=== PATIENT | female | born 1990 | race Caucasian/White ===

== ENCOUNTER 2018-12-17 18:45 | Emergency (ER) | payer MEDICAID, OTHER ==
[~2018-12-17] VITALS: Ht 160 cm; Wt 51.7 kg
--- NOTE | 2018-12-17 19:30 | ED GU-Female ---
General Chief Complaint: SERVICES TECH Stated Complaint: SWOLLEN/PAINFUL VAGINA Nursing Triage Note: Patient states that she got home from work and noticed a spot with a white head on the right side of the upper inner labia. Patient got in the shower and states she felt a "popping sensation", went to bed and woke up with severe swelling. Patient went to Dr Billingsley on Wednesday. He cultured it and prescribed an antibiotic. Patient states that the swelling around her anal area has improved but her labias still have severe swelling and pain. Patient is rating her pain at a 10. Patient denies having any drainage from the area where she found the sore. She doesn't believe that Dr. Billingsley was able to get any drainage either. Patient states that the whole area is hard to the touch. Nursing Sepsis Screen: No Definite Risk Source: patient History of Present Illness Date Seen by Provider: Dec 17, 2018 Time Seen by Provider: 19:30 Initial Comments 28-year-old female presenting with continued pain and swelling to her right labia. She was seen by Dr. Villa on Wednesday for the same thing. She has been taking antibiotics as well as using ice alternating with sitz baths. she continues to have increased swelling and pain. She has not had any drainage from the area. She does feel like the swelling has gone down some since she was seen on Wednesday. She has had no fever or chills. She has been using ibuprofen for the pain with minimal improvement. She came in today because the pain was unbearable tonight. She has increased pain when she is walking as her legs and labia are rubbing on the area. There is increased pressure as well when she has to wipe after going to the bathroom. Allergies and Home Medications Allergies Coded Allergies: amoxicillin (Verified Allergy, Severe, Hives, 12/17/18) Uncoded Allergies: SULFA (Allergy, Severe, Hives, 12/17/18) Home Medications Tramadol HCl 50 Mg Tablet, 50 MG PO Q6H PRN for PAIN Prescribed by: ALEX ARRIETA on 12/17/182055 Patient Home Medication List Home Medication List Reviewed: Yes Review of Systems Review of Systems Constitutional: No chills, No fever EENTM: no symptoms reported Respiratory: no symptoms reported Cardiovascular: no symptoms reported Gastrointestinal: nausea (after taking medication.) Genitourinary: see HPI Musculoskeletal: no symptoms reported Skin: see HPI Past Nyojjaf-Xdzqho-Ldtbel Hx Past Med/Social Hx: Reviewed Nursing Past Med/Soc Hx Patient Social History Alcohol Use: Denies Use Recreational Drug Use: Yes Drug of Choice: Marijuana Smoking Status: Current Everyday Smoker Type Used: Electronic/Vapor 2nd Hand Smoke Exposure: Yes Recent Foreign Travel: No Contact w/Someone Who Travel: No Recent Infectious Disease Expo: No Recent Hopitalizations: No Physical Abuse: No Sexual Abuse: No Mistreated: No Fear: No Seasonal Allergies Seasonal Allergies: No Past Medical History Surgeries: Yes (EGD, Tubes in Ears, Colonoscopy, Hernia Repair) Respiratory: No Cardiac: No Neurological: No Genitourinary: No Gastrointestinal: Yes (Gastritis) Musculoskeletal: No Endocrine: No HEENT: No Cancer: No Psychosocial: No Integumentary: No Physical Exam Vital Signs Vital Signs - First Documented 12/17/18 18:50 Temp 98.3 Pulse 62 Resp 18 B/P (MAP) 152/103 (119) Pulse Ox 99 O2 Delivery Room Air Capillary Refill : Less Than 3 Seconds Height, Weight, BMI Height: 5'3.00" Weight: 114lbs. 0oz. 51.977826xm; BMI Method:Stated General Appearance: WD/WN, moderate distress, thin HEENT: PERRL/EOMI, pharynx normal Genital/Rectal: other (swelling to the right labia with the pustule chest lateral to her porter of the clitoris on outer labia majora. no fluctuance or drainage. indurated and tender to palpation) Neurologic/Psychiatric: alert, oriented x 3 Skin: normal color, warm/dry Progress/Results/Core Measures Suspected Sepsis Recent Fever Within 48 Hours: No Infection Criteria Present: Suspected New Infection New/Unexplained Altered Menta: No Sepsis Screen: No Definite Risk SIRS Temperature:98.3 Pulse: 62 Respiratory Rate: 18 Blood Pressure 152 /103 Mean: 119 Results/Orders My Orders Orders - ALEX ARRIETA MD Ketorolac Injection (Toradol Injection) (12/17/18 20:00) Rx-Tramadol Hcl (Rx-Ultram) (12/17/18 21:00) Medications Given in ED Current Medications Medications Dose Ordered Sig/Deysi Route Start Time Stop Time Status Last Admin Dose Admin Ketorolac Tromethamine 60 mg ONCE ONCE IM 12/17/18 20:00 7/6/19 20:01 DC 12/17/18 19:52 60 MG Vital Signs/I&O 12/17/18 12/17/18 18:50 21:00 Temp 98.3 98.7 Pulse 62 68 Resp 18 18 B/P (MAP) 152/103 (119) 134/92 (106) Pulse Ox 99 99 O2 Delivery Room Air Room Air Capillary Refill : Less Than 3 Seconds Blood Pressure Mean: 119 Progress Note : Progress Note Discussed with Dr. Billingsley about the area in question. As I had not seen any definite area to drain and had not felt a definite area of fluctuance I did not feel comfortable trying to randomly to an incision and drainage or needle aspiration. Will try to have her continue the antibiotics and treatment. Check in clinic on wednesday as scheduled Toradol for pain here helped some. Tramadol at home for pain as Hydrocodone makes her vomit and sick Departure Impression Primary Impression: Abscess of labia majora Disposition: HOME, SELF-CARE Condition: Stable Departure-Patient Inst. Decision time for Depature: 20:54 Referrals: CATY BILLINGSLEY DO (PCP/Family) Primary Care Physician Patient Instructions: Boil (DC) Add. Discharge Instructions: Continue on the antibiotics with soaks and alternate with cold packs. Try to rest when you can. Keep your follow up with Dr. Billingsley on Wednesday as scheduled. All discharge instructions reviewed with patient and/or family. Voiced understanding. Scripts Tramadol HCl (Tramadol HCl) 50 Mg Tablet 50 MG PO Q6H PRN for PAIN for 5 Days, #20 TAB 0 Refills Prov: ALEX ARRIETA MD 12/17/18 Work/School Note: Work Release Form Date Seen in the Emergency Department: Dec 17, 2018 Return to Work: Dec 21, 2018 Restrictions: No Restrictions ALEX ARRIETA MD Dec 17, 2018 19:30
[2018-12-17] MEDS ORDERED: KETOROLAC 60 MG/2 ML VIAL IM ONE (20:00)
--- OUTSIDE RECORDS SUMMARY | 2018-12-17 20:08 | XMS REPORT | Continuity of Care Document ---
Author Organization Unknown Address Unknown Allergies There is no data. Medications There is no data. Problems There is no data. Procedures There is no data. Results There is no data. Encounters ACCT No. Visit Date/Time Discharge Status Pt. Type Provider Facility Loc./Unit Complaint [id number] 12/13/2018 15:15:00 12/13/2018 23:59:59 CLS Outpatient CODY CASTILLO [facility]
--- OUTSIDE RECORDS SUMMARY | 2018-12-17 20:08 | XMS REPORT ---
Author Author DEBBIE MCKINNEY Organization [facility] Address [address] [place] [address] Care Team Providers Care Adult Daycare Coordinator Name Role Phone DEBBIE MCKINNEY Unavailable PROBLEMS Type Condition ICD9-CM Code TVZ83-TT Code Onset Dates Condition Status SNOMED Code Problem Encounter for dental examination Z01.20 Active [id number] Assessment Encounter for dental examination Z01.20 Jan, Active [id number] ALLERGIES Substance Reaction Event Type Date Status Sulfacet-R hives Drug Allergy Jan, Active Amoxicillin anaphylaxis Drug Allergy Jan, Active latex or plastic tape/bandages hives Non Drug Allergy Jan, Active SOCIAL HISTORY No smoking Hx information available PLAN OF CARE VITAL SIGNS Blood pressure systolic 112 mmHg 2016-02-11 Blood pressure diastolic 69 mmHg 2016-02-11 MEDICATIONS Medication Instructions Dosage Frequency Start Date End Date Duration Status Multi Complete - Active RESULTS No Results PROCEDURES Procedure Date Ordered Related Diagnosis Body Site COMP ORAL EVALUATION - NEW/EST PT Feb 11, 2016 INTRAORL-PERIAPICAL 1 FILM [id number] Feb 11, 2016 TOPICAL FLUORIDE VARNISH Feb 11, 2016 PROPHYLAXIS - ADULT Feb 11, 2016 INTRAORL-PERIAPICAL EA ADD FILM Feb 11, 2016 INTRAORL-PERIAPICAL EA ADD FILM Feb 11, 2016 PANORAMIC FILM SEE ALSO CODE [id number] Feb 11, 2016 BITEWINGS - FOUR FILMS Feb 11, 2016 IMMUNIZATIONS No Known Immunizations
[2018-12-17] MEDS ORDERED: TRAM50TA2 PO (20:56)
[2018-12-17 21:00] VITALS: BP 134/92
[2018-12-17] MEDS ORDERED: RX-TRAMADOL 50 MG (ULTRAM) TAB PPK#4 PO PRN (21:00)
== END 2018-12-17 21:00 | disposition home or self-care (01) ==
LOC: ER FS 18:48
DX: N76.4 Abscess of vulva (principal); F12.10 Cannabis abuse, uncomplicated; F17.290 Nicotine dependence, other tobacco product, uncomplicated; Z88.1 Allergy status to other antibiotic agents; Z88.2 Allergy status to sulfonamides; Z98.890 Other specified postprocedural states
CPT/HCPCS: 96372; 99284

== ENCOUNTER 2018-12-19 13:16 | Emergency (ER) | payer MEDICAID ==
[~2018-12-19] VITALS: Ht 160 cm; Wt 52.2 kg
[~2018-12-19 13:16] MED LIST: TRAM50TA2 PO
--- OUTSIDE RECORDS SUMMARY | 2018-12-19 13:21 | XMS REPORT | Continuity of Care Document ---
Author Organization Unknown Address Unknown Allergies There is no data. Medications There is no data. Problems There is no data. Procedures There is no data. Results There is no data. Encounters ACCT No. Visit Date/Time Discharge Status Pt. Type Provider Facility Loc./Unit Complaint [id number] 12/13/2018 15:15:00 12/13/2018 23:59:59 CLS Outpatient CODY CASTILLO [facility]
--- NOTE | 2018-12-19 13:30 | NUR ---
Spoke to [facility] clinic staff to see if Dr Hewitt is available this afternoon and if she treats bartholin cysts or labial abscesses. Informed that Dr Hewitt is doing deliveries this afternoon and is unavailable.
[2018-12-19] MEDS ORDERED: KETOROLAC 15 MG/ML VIAL ONE (13:35)
--- NOTE | 2018-12-19 13:39 | ED GU-Female ---
General Stated Complaint: ABSCESS Source: patient, RN notes reviewed, old records Exam Limitations: no limitations History of Present Illness Date Seen by Provider: Dec 19, 2018 Time Seen by Provider: 13:27 Initial Comments Patient represents here c/ c/o worsening right labia pain and swelling. Has an appointment c/ Dr. Billingsley tomorrow, but the pain has gotten to the point she can't take it any longer although she hasn't taken anything for her pain. States she took a Tramadol yesterday and it spaced her out. Timing/Duration: constant, getting worse Severity/Quality: severe, throbbing Location: other (right labia) Radiation: none Activities at Onset: none Modifying Factors: Worsens With Palpation Associated Symptoms: denies symptoms (x/ as noted.), mass (right labia), swelling (right labia) Allergies and Home Medications Allergies Coded Allergies: amoxicillin (Verified Allergy, Severe, Hives, 12/17/18) Uncoded Allergies: SULFA (Allergy, Severe, Hives, 12/17/18) Home Medications Tramadol HCl 50 Mg Tablet, 50 MG PO Q6H PRN for PAIN Prescribed by: ALEX ARRIETA on 12/17/182055 Patient Home Medication List Home Medication List Reviewed: Yes Review of Systems Review of Systems Constitutional: see HPI Genitourinary: see HPI, pain (right labia) : No All Other Systemes Reviewed Negative Unless Noted: Yes (Negative excepted noted.) Past Euxgvdt-Tclljz-Jnlbqt Hx Patient Social History Drug of Choice: Marijuana Type Used: Electronic/Vapor 2nd Hand Smoke Exposure: Yes Recent Hopitalizations: No Seasonal Allergies Seasonal Allergies: No Past Medical History Surgeries: Yes (EGD, Tubes in Ears, Colonoscopy, Hernia Repair) Respiratory: No Cardiac: No Neurological: No Genitourinary: No Gastrointestinal: Yes (Gastritis) Musculoskeletal: No Endocrine: No HEENT: No Cancer: No Psychosocial: No Integumentary: No Physical Exam Vital Signs Capillary Refill : Height, Weight, BMI Height: 5'3.00" Weight: 114lbs. 0oz. 51.040351zu; BMI Method:Stated General Appearance: WD/WN, moderate distress Respiratory: no respiratory distress Pelvic: other (swollen, tender right labia) Neurologic/Psychiatric: no motor/sensory deficits, alert, oriented x 3 Skin: warm/dry Progress/Results/Core Measures Suspected Sepsis SIRS Temperature: Pulse: Respiratory Rate: Blood Pressure / Mean: Results/Orders My Orders Orders - SNUNI BAÑUELOS DO Ketorolac Injection (Toradol Injection) (12/19/18 13:45) Ketorolac Injection (Toradol Injection) (12/19/18 13:35) Medications Given in ED Current Medications Medications Dose Ordered Sig/Deysi Route Start Time Stop Time Status Last Admin Dose Admin Ketorolac Tromethamine 15 mg ONCE ONCE IM 12/19/18 13:45 12/19/18 13:46 12/19/18 13:41 15 MG Vital Signs/I&O Capillary Refill : Progress Note : Progress Note Discussed c/ Dr. Billingsley. He requests the patient come directly down to the [facility] clinic for evaluation and treatment. Departure Impression Primary Impression: Abscess of labia majora Disposition: 01 HOME, SELF-CARE Condition: Stable Departure-Patient Inst. Decision time for Depature: 13:38 Referrals: CATY BILLINGSLEY DO SELFCATHERINE MD (PCP/Family) Primary Care Physician Add. Discharge Instructions: PROCEED DIRECTLY TO THE THE [facility] IN [place] TO SEE DR. BILLINGSLEY. SUNNI BAÑUELOS DO Dec 19, 2018 13:39
[2018-12-19] MEDS ORDERED: KETOROLAC 60 MG/2 ML VIAL IM ONE (13:45)
[2018-12-19 13:48] VITALS: BP 128/83
== END 2018-12-19 13:50 | disposition home or self-care (01) ==
LOC: EDUNIT# 13:16 → ER FS 13:18
DX: N76.4 Abscess of vulva (principal); Z88.1 Allergy status to other antibiotic agents; Z88.2 Allergy status to sulfonamides; Z77.22 Contact with and (suspected) exposure to environmental tobacco smoke (acute) (chronic); Z98.890 Other specified postprocedural states
CPT/HCPCS: 96372; 99284

== ENCOUNTER → 2019-07-21 | Outpatient (CLI) | payer MEDICAID ==
[~2019-07-21] MED LIST changes: -TRAM50TA2 PO; +TRM50T PO
--- NOTE | 2019-07-21 17:43 | Diagnostic Imaging Report ---
INDICATION: Left chest pain. PA and lateral views of the chest are obtained. COMPARISON: No previous study is available for comparison at this time. FINDINGS: Heart size and pulmonary vasculature are within normal limits, and the lungs are clear, bilaterally. IMPRESSION: Unremarkable chest. Dictated by: Dictated on workstation # [id number]
== END ==
LOC: RAD FS 16:46
PROVIDERS: ATTEND Nurse Practitioner Family
DX: R07.89 Other chest pain (principal)
CPT/HCPCS: 71046

== ENCOUNTER 2023-03-16 14:18 | Emergency (ER) | payer MEDICAID ==
[~2023-03-16] VITALS: Ht 162 cm; Wt 48.0 kg
[~2023-03-16 14:18] MED LIST changes: +DOXY25TA56 PO; +FAMO40TA72 PO; +ONDA4TAB11 SL; +PROM12.566 RC
[2023-03-16] MEDS ORDERED: LACTATED RINGERS 1,000 ML 1,000 ML IV STA (14:25)
[2023-03-16] MEDS ORDERED: diphenhydrAMINE INJ 50 MG/ML VIAL IV STA (14:25)
[2023-03-16] MEDS ORDERED: PROMETHAZINE INJ 25 MG/ML VIAL IVP STA (14:25)
[2023-03-16 14:36] LABS: BASOPHILS % (AUTO) 0 % (0-10); EOSINOPHILS % (AUTO) 0 % (0-10); HEMATOCRIT 42 % (35-52); HEMOGLOBIN 14.9 g/dL (11.5-16.0); LYMPHOCYTES # (AUTO) 1.8 10^3/uL (1.0-4.0); LYMPHOCYTES % (AUTO) 20 % (12-44); MEAN CORPUSCULAR HEMOGLOBIN 32 pg (25-34); MEAN CORPUSCULAR HGB CONC 35 g/dL (32-36); MEAN CORPUSCULAR VOLUME 90 fL (80-99); MONOCYTES # (AUTO) 0.9 10^3/uL (0.0-1.0); MONOCYTES % (AUTO) 10 % (0-12); NEUTROPHILS # (AUTO) 6.4 10^3/uL (1.8-7.8); NEUTROPHILS % (AUTO) 69 % (42-75); PLATELET COUNT 187 10^3/uL (130-400); WHITE BLOOD COUNT 9.3 10^3/uL (4.3-11.0)
--- NOTE | 2023-03-16 14:44 | ED GI ---
General Stated Complaint: VOMITING History of Present Illness Date Seen by Provider: Mar 16, 2023 Time Seen by Provider: 14:34 Initial Comments 33-year-old female is a G G2, P1 at approximately 8 weeks with estimated due date of 11/01/2023 presents with vomiting. Patient has had significant issues with vomiting through her . She has been seen here on March 10 and again on March 14. She is also was seen yesterday by her primary care provider/OB where she has some IV fluids and Phenergan. She presents because she reports she is continue to have a hard time keeping anything down. Patient has doxylamine and Zofran at home. Allergies and Home Medications Allergies Coded Allergies: amoxicillin (Verified Allergy, Severe, Hives, 12/17/18) Uncoded Allergies: SULFA (Allergy, Severe, Hives, 12/17/18) Patient Home Medication List Home Medication List Reviewed: Yes Doxylamine Succinate (Unisom) 25 Mg Tablet, 25 MG PO HS Prescribed by: KENYETTA ALANIS on 03/10/2315 Famotidine (Pepcid) 40 Mg Tablet, 40 MG PO DAILY Prescribed by: KENYETTA ALANIS on 03/10/23 0616 Ondansetron (Ondansetron Odt) 4 Mg Tab.rapdis, 4 MG SL Q6H PRN for NAUSEA/VOMITING-2ND LINE Prescribed by: KENYETTA ALANIS on 03/10/23 0615 Promethazine HCl (Promethazine Suppository) 12.5 Mg Supp.rect, 12.5 MG RC Q6H PRN for NAUSEA/VOMITING Prescribed by: ALEX ARRIETA on 03/14/235 Tramadol HCl (Tramadol HCl) 50 Mg Tablet, 50 MG PO Q6H PRN for PAIN Prescribed by: ALEX ARRIETA on 12/17/182055 Review of Systems Review of Systems Constitutional: see HPI EENTM: No Symptoms Reported Respiratory: No Symptoms Reported Cardiovascular: No Symptoms Reported Gastrointestinal: No Symptoms Reported Genitourinary: See HPI Skin: no symptoms reported Psychiatric/Neurological: No Symptoms Reported Endocrine: No Symptoms Reported Past Pwznfpe-Pbbncq-Dtxxil Hx Seasonal Allergies Seasonal Allergies: No Past Medical History Surgeries: Yes (EGD, Tubes in Ears, Colonoscopy, Hernia Repair) Respiratory: No Cardiac: No Neurological: No Genitourinary: No Gastrointestinal: Yes (Gastritis) Gastroesophageal Reflux Musculoskeletal: No Endocrine: No HEENT: No Cancer: No Psychosocial: No Integumentary: No Physical Exam Vital Signs Vital Signs - First Documented 03/16/23 14:46 Temp 36.7 Pulse 95 Resp 16 B/P (MAP) 141/85 (103) Pulse Ox 97 O2 Delivery Room Air Capillary Refill : Height/Weight/BMI Height: 5'3.00" Weight: 115lbs. 0oz. 52.846406mq; 18.00 BMI Method:Stated General Appearance: no apparent distress, thin Neck: full range of motion, supple Respiratory: lungs clear, normal breath sounds Cardiovascular: normal peripheral pulses, regular rate, rhythm Gastrointestinal: non tender, soft, other (fht 160's) Extremities: normal range of motion Neurologic/Psychiatric: alert, normal mood/affect, oriented x 3 Skin: normal color, warm/dry Progress/Results/Core Measures Results/Orders Lab Results Laboratory Tests Test 03/16/23 14:30 Range/Units White Blood Count 9.3 4.3-11.0 10^3/uL Red Blood Count 4.71 3.80-5.11 10^6/uL Hemoglobin 14.9 11.5-16.0 g/dL Hematocrit 42 35-52 % Mean Corpuscular Volume 90 80-99 fL Mean Corpuscular Hemoglobin 32 25-34 pg Mean Corpuscular Hemoglobin Concent 35 32-36 g/dL Red Cell Distribution Width 11.8 10.0-14.5 % Platelet Count 187 130-400 10^3/uL Mean Platelet Volume 11.0 9.0-12.2 fL Immature Granulocyte % (Auto) 0 % Neutrophils (%) (Auto) 69 42-75 % Lymphocytes (%) (Auto) 20 12-44 % Monocytes (%) (Auto) 10 0-12 % Eosinophils (%) (Auto) 0 0-10 % Basophils (%) (Auto) 0 0-10 % Neutrophils # (Auto) 6.4 1.8-7.8 10^3/uL Lymphocytes # (Auto) 1.8 1.0-4.0 10^3/uL Monocytes # (Auto) 0.9 0.0-1.0 10^3/uL Eosinophils # (Auto) 0.0 0.0-0.3 10^3/uL Basophils # (Auto) 0.0 0.0-0.1 10^3/uL Immature Granulocyte # (Auto) 0.0 0.0-0.1 10^3/uL Percent Immature Platelet Fraction 6.7 0.0-7.6 % Sodium Level 133 L 135-145 MMOL/L Potassium Level 3.6 3.6-5.0 MMOL/L Chloride Level 99 98-107 MMOL/L Carbon Dioxide Level 23 21-32 MMOL/L Anion Gap 11 5-14 MMOL/L Blood Urea Nitrogen 8 7-18 MG/DL Creatinine 0.43 L 0.60-1.30 MG/DL Estimat Glomerular Filtration Rate 132 BUN/Creatinine Ratio 19 Glucose Level 114 H 70-105 MG/DL Calcium Level 10.3 H 8.5-10.1 MG/DL Corrected Calcium 10.1 8.5-10.1 MG/DL Total Bilirubin 0.9 0.1-1.0 MG/DL Aspartate Amino Transf (AST/SGOT) 18 5-34 U/L Alanine Aminotransferase (ALT/SGPT) 20 0-55 U/L Alkaline Phosphatase 70 40-136 U/L Total Protein 6.7 6.4-8.2 GM/DL Albumin 4.2 3.2-4.5 GM/DL My Orders Orders - SALAZAR,DI L DO Cbc And Automated Diff (03/16/23 14:25) Comprehensive Metabolic Panel (03/16/23 14:25) Promethazine Injection (Promethazine I (03/16/23 14:25) Lactated Ringers 1,000 Ml (Lactated Ring (03/16/23 14:25) Diphenhydramine Injection (Diphenhydram (03/16/23 14:25) Vital Signs/I&O 03/16/23 14:46 Temp 36.7 Pulse 95 Resp 16 B/P (MAP) 141/85 (103) Pulse Ox 97 O2 Delivery Room Air Progress Progress Note : Progress Note Patient's diagnostic studies were ordered reviewed and interpreted by me with no significant acute findings. Patient is feeling better following IV fluids and IV nausea medications. I did review patient's chart. 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 Patient has a history of marijuana use I suggest that she may try some capsaicin cream on her abdomen to help dampen the nausea. 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 Patient stable and discharged home Departure Impression Primary Impression: Hyperemesis gravidarum Disposition: 01 HOME, SELF-CARE Condition: Stable Departure-Patient Inst. Referrals: SELF,CATHERINE NGUYEN (PCP/Family) Primary Care Physician Patient Instructions: Morning Sickness (DC) Add. Discharge Instructions: You may try a thin layer of capsaicin cream on your abdomen to help with the nausea. Follow-up with your primary care provider return to the ER as needed for IV fluids and medications to help with your nausea. Follow-up with Dr. Wilkinson as needed. DI SALAZAR DO Mar 16, 2023 14:44
[2023-03-16 14:46] VITALS: BP 141/85
[2023-03-16 14:55] LABS: POTASSIUM 3.6 MMOL/L (3.6-5.0)
[2023-03-16 14:56] LABS: ALBUMIN 4.2 GM/DL (3.2-4.5); BILIRUBIN,TOTAL 0.9 MG/DL (0.1-1.0); CALCIUM 10.3 MG/DL (8.5-10.1); CREATININE SERUM 0.43 MG/DL (0.60-1.30); TOTAL PROTEIN 6.7 GM/DL (6.4-8.2)
== END 2023-03-16 15:30 | disposition home or self-care (01) ==
LOC: EDUNIT# 14:18 → ER FS 14:20
DX: O21.0 Mild hyperemesis gravidarum (principal); Z3A.08 8 weeks gestation of pregnancy
CPT/HCPCS: 36415; 80053; 85025

== ENCOUNTER 2023-03-18 13:53 | Observation (INO) | payer MEDICAID ==
[~2023-03-18] VITALS: Ht 162 cm; Wt 48.0 kg
[2023-03-18] MEDS ORDERED: SCOPOLAMINE 1.5 MG PATCH TD ONE (14:00)
[2023-03-18] MEDS ORDERED: FAMOTIDINE INJ 20MG/2ML VIAL IVP ONE (14:00)
[2023-03-18] MEDS ORDERED: LACTATED RINGERS 1,000 ML 1,000 ML IV ONE (14:00)
[2023-03-18] MEDS ORDERED: PROMETHAZINE INJ 25 MG/ML VIAL IVP ONE (14:00)
[2023-03-18] MEDS ORDERED: ONDANSETRON INJECTION 4 MG/2 ML (SDV) IVP ONE (14:15)
[2023-03-18] MEDS ORDERED: diphenhydrAMINE INJ 50 MG/ML VIAL IVP ONE (14:15)
--- NOTE | 2023-03-18 14:38 | ED General ---
General Chief Complaint: OB < 20 WEEKS Stated Complaint: VOMITING 7 WEEKS Nursing Triage Note: ARRIVED VIA WC FROM [facility]UCK WITH COMPLAINTS OF SEVERE N/V SINCE BEING . STATES SHE IS 7 WEEKS AND HAS TRIED ZOFRAN AND SUPP WITH NO RELIEF. Source of Information: Patient Exam Limitations: No Limitations History of Present Illness Date Seen by Provider: Mar 18, 2023 Time Seen by Provider: 13:56 Initial Comments This 33-year-old young lady is a 3 para 1 at approximately 7 weeks gestational age who presents to the emergency room with extreme nausea and vomiting. Symptoms have been persistent for approximately 3 weeks which is the duration of time she is known about the . She has been trying numerous therapies including dietary changes, Zofran, Phenergan tablets, Phenergan suppositories, scopolamine patches, doxylamine, and vitamin B6. She is unable to swallow and keep down the oral medications. The topical, sublingual and suppository medications have not been sufficient to control her symptoms. She reports history of gastritis and hiatal hernia. The vomiting causes her significant abdominal pain. She is exhausted from nonstop vomiting and reports a 15 pound weight loss in the last [address] Chacon is her primary obstetrical provider. She has had 5 visits to the emergency room for similar symptoms and outpatient IV fluids administered since March 10. Review of prior visit notes reveals patient tested positive for cannabinoids in the past. She admits to using marijuana and drinking alcohol until she found out she was 3 weeks ago. She denies any use of marijuana or alcohol since then. She admits to continued vaping. She is very tearful and in distress about her condition. Allergies and Home Medications Allergies Coded Allergies: amoxicillin (Verified Allergy, Severe, Hives, 12/17/18) Uncoded Allergies: SULFA (Allergy, Severe, Hives, 12/17/18) Patient Home Medication List Home Medication List Reviewed: Yes Doxylamine Succinate (Unisom) 25 Mg Tablet, 25 MG PO HS Prescribed by: KENYETTA ALANIS on 03/10/23 0615 Famotidine (Pepcid) 40 Mg Tablet, 40 MG PO DAILY Prescribed by: KENYETTA ALANIS on 03/10/23 0616 Ondansetron (Ondansetron Odt) 4 Mg Tab.rapdis, 4 MG SL Q6H PRN for NAUSEA/VOMITING-2ND LINE Prescribed by: KENYETTA ALANIS on 03/10/23 0615 Promethazine HCl (Promethazine Suppository) 12.5 Mg Supp.rect, 12.5 MG RC Q6H PRN for NAUSEA/VOMITING Prescribed by: ALEX ARRIETA on 03/14/23 2345 Tramadol HCl (Tramadol HCl) 50 Mg Tablet, 50 MG PO Q6H PRN for PAIN Prescribed by: ALEX ARRIETA on 12/17/182055 Review of Systems Review of Systems Constitutional: weight loss EENTM: no symptoms reported Respiratory: no symptoms reported Cardiovascular: no symptoms reported Gastrointestinal: see HPI Genitourinary: see HPI : Yes Expected Date of Delivery: November 01, 2023 Musculoskeletal: no symptoms reported Skin: no symptoms reported Psychiatric/Neurological: No Symptoms Reported Hematologic/Lymphatic: No Symptoms Reported Immunological/Allergic: no symptoms reported Past Wuqekbb-Yaefvc-Muvqnl Hx Patient Social History Tobacco Use?: No Use of E-Cig and/or Vaping dev: Yes E-Cig or Vaping type used: Nicotine Substance use?: Yes Substance type: Marijuana (stopped about mid Feb 2023) Alcohol Use?: Yes (Stopped mid Feb 2023) Seasonal Allergies Seasonal Allergies: No Past Medical History Surgeries: Yes (EGD, Tubes in Ears, Colonoscopy, Hernia Repair) Abdominal (hernia), Adenoidectomy, Ear Surgery (BMT), Tonsillectomy Respiratory: No Cardiac: No Neurological: No Expected Date of Delivery: November 01, 2023 Genitourinary: No Gastrointestinal: Yes (Gastritis) Gastroesophageal Reflux Musculoskeletal: No Endocrine: No HEENT: No Cancer: No Psychosocial: No Integumentary: No Physical Exam Vital Signs Vital Signs - First Documented 03/18/23 13:53 Temp 36.3 Pulse 115 Resp 16 B/P (MAP) 129/99 (109) Pulse Ox 98 O2 Delivery Room Air Capillary Refill : Less Than 3 Seconds Height, Weight, BMI Height: 5'3.00" Weight: 115lbs. 0oz. [id number]; 18.00 BMI Method:Stated General Appearance: No Apparent Distress, WD/WN, Cachetic HEENT: PERRL/EOMI, Normal ENT Inspection Neck: Normal Inspection Respiratory: Lungs Clear, Normal Breath Sounds Cardiovascular: Regular Rate, Rhythm, No Edema, No Murmur Gastrointestinal: Normal Bowel Sounds, Soft; No Distended; Tenderness (g eneralized) Extremity: Normal Inspection, No Pedal Edema Neurologic/Psychiatric: Alert, Oriented x3, No Motor/Sensory Deficits, Other (tearful and in distress) Skin: Normal Color, Warm/Dry Progress/Results/Core Measures Suspected Sepsis SIRS Temperature: Pulse: 115 Respiratory Rate: 16 Laboratory Tests 03/18/23 14:00: White Blood Count 11.6H Blood Pressure 129 /99 Mean: 109 Laboratory Tests 03/18/23 14:00: Creatinine 0.51L, Platelet Count 224, Total Bilirubin 0.9 Results/Orders Lab Results Laboratory Tests Test 03/18/23 14:00 03/18/23 15:35 Range/Units White Blood Count 11.6 H 4.3-11.0 10^3/uL Red Blood Count 5.05 3.80-5.11 10^6/uL Hemoglobin 15.8 11.5-16.0 g/dL Hematocrit 45 35-52 % Mean Corpuscular Volume 89 80-99 fL Mean Corpuscular Hemoglobin 31 25-34 pg Mean Corpuscular Hemoglobin Concent 35 32-36 g/dL Red Cell Distribution Width 11.9 10.0-14.5 % Platelet Count 224 130-400 10^3/uL Mean Platelet Volume 12.0 9.0-12.2 fL Immature Granulocyte % (Auto) 0 % Neutrophils (%) (Auto) 63 42-75 % Lymphocytes (%) (Auto) 27 12-44 % Monocytes (%) (Auto) 9 0-12 % Eosinophils (%) (Auto) 1 0-10 % Basophils (%) (Auto) 0 0-10 % Neutrophils # (Auto) 7.3 1.8-7.8 10^3/uL Lymphocytes # (Auto) 3.1 1.0-4.0 10^3/uL Monocytes # (Auto) 1.0 0.0-1.0 10^3/uL Eosinophils # (Auto) 0.1 0.0-0.3 10^3/uL Basophils # (Auto) 0.0 0.0-0.1 10^3/uL Immature Granulocyte # (Auto) 0.0 0.0-0.1 10^3/uL Percent Immature Platelet Fraction 8.3 H 0.0-7.6 % Sodium Level 134 L 135-145 MMOL/L Potassium Level 3.3 L 3.6-5.0 MMOL/L Chloride Level 98 98-107 MMOL/L Carbon Dioxide Level 21 21-32 MMOL/L Anion Gap 15 H 5-14 MMOL/L Blood Urea Nitrogen 9 7-18 MG/DL Creatinine 0.51 L 0.60-1.30 MG/DL Estimat Glomerular Filtration Rate 127 BUN/Creatinine Ratio 18 Glucose Level 110 H 70-105 MG/DL Calcium Level 10.5 H 8.5-10.1 MG/DL Corrected Calcium 10.2 H 8.5-10.1 MG/DL Magnesium Level 1.8 1.6-2.4 MG/DL Total Bilirubin 0.9 0.1-1.0 MG/DL Aspartate Amino Transf (AST/SGOT) 20 5-34 U/L Alanine Aminotransferase (ALT/SGPT) 22 0-55 U/L Alkaline Phosphatase 70 40-136 U/L Total Protein 6.9 6.4-8.2 GM/DL Albumin 4.4 3.2-4.5 GM/DL Human Chorionic Gonadotropin, Quant [id number] H <5 MIU/ML Urine Color YELLOW Urine Clarity SL CLOUDY Urine pH 7.5 5-9 Urine Specific [place] 1.010 L 1.016-1.022 Urine Protein 2+ H NEGATIVE Urine Glucose (UA) NEGATIVE NEGATIVE Urine Ketones 2+ H NEGATIVE Urine Nitrite NEGATIVE NEGATIVE Urine Bilirubin NEGATIVE NEGATIVE Urine Urobilinogen 1.0 < = 1.0 MG/DL Urine Leukocyte Esterase NEGATIVE NEGATIVE Urine RBC (Auto) NEGATIVE NEGATIVE Urine RBC NONE /HPF Urine WBC 0-2 /HPF Urine Squamous Epithelial Cells 2-5 /HPF Urine Crystals PRESENT H /LPF Urine Amorphous Sediment MOD [place] PHOSPHATE H /LPF Urine Bacteria FEW H /HPF Urine Casts NONE /LPF Urine Mucus SMALL H /LPF Urine Culture Indicated NO Urine Opiates Screen NEGATIVE NEGATIVE Urine Oxycodone Screen NEGATIVE NEGATIVE Urine Methadone Screen NEGATIVE NEGATIVE Urine Propoxyphene Screen NEGATIVE NEGATIVE Urine Barbiturates Screen NEGATIVE NEGATIVE Ur Tricyclic Antidepressants Screen NEGATIVE NEGATIVE Urine Phencyclidine Screen NEGATIVE NEGATIVE Urine Amphetamines Screen NEGATIVE NEGATIVE Urine Methamphetamines Screen NEGATIVE NEGATIVE Urine Benzodiazepines Screen NEGATIVE NEGATIVE Urine Cocaine Screen NEGATIVE NEGATIVE Urine Cannabinoids Screen POSITIVE H NEGATIVE My Orders Orders - LEELA ANDRADE MD Ed Iv/Invasive Line Start (03/18/23 13:58) Lactated Ringers 1,000 Ml (Lactated Ring (03/18/23 14:00) Famotidine Injection (Famotidine Injec (03/18/23 14:00) Cbc And Automated Diff (03/18/23 13:59) Comprehensive Metabolic Panel (03/18/23 13:59) Hcg,Quantitative (03/18/23 13:59) Magnesium (03/18/23 13:59) Ondansetron Injection (Ondansetron Inj (03/18/23 14:15) Diphenhydramine Injection (Diphenhydram (03/18/23 14:15) Drug Screen Stat (Urine) (03/18/23 14:41) Ua Culture If Indicated (03/18/23 14:41) Medications Given in ED Current Medications Medications Dose Ordered Sig/Deysi Route Start Time Stop Time Status Last Admin Dose Admin Diphenhydramine HCl 25 mg ONCE ONCE IVP 03/18/23 14:15 03/18/23 14:16 DC 03/18/23 14:17 25 MG Famotidine 20 mg ONCE ONCE IVP 03/18/23 14:00 03/18/23 14:01 DC 03/18/23 14:08 20 MG Lactated Ringer's 1,000 ml @ 0 mls/hr Q0M ONCE IV 03/18/23 14:00 03/18/23 14:01 DC 03/18/23 14:13 1,000 MLS/HR Ondansetron HCl 8 mg ONCE ONCE IVP 03/18/23 14:15 03/18/23 14:16 DC 03/18/23 14:11 8 MG Vital Signs/I&O 03/18/23 13:53 Temp 36.3 Pulse 115 Resp 16 B/P (MAP) 129/99 (109) Pulse Ox 98 O2 Delivery Room Air Capillary Refill : Less Than 3 Seconds Blood Pressure Mean: 109 Progress Note : Progress Note Patient had recently used a Phenergan suppository. Zofran had not been taken for several hours. Zofran 8 mg IV was administered. She had a fresh scopolamine patch applied at home. Nausea was further treated with Benadryl 25 mg IV. She was hydrated with a 1 L LR bolus. Patient is exhausted from persistent vomiting and does not feel she is sustaining basic hydration and nutrients on her own at home. She is requesting admission. I believe this is reasonable given she has had 5 ER visits plus outpatient IV therapy since March 10. This is excessive utilization of resources necessitating admission at this point. Labs were obtained and reviewed by me in their entirety. CBC demonstrated a scant leukocytosis of 11.6. CBC was otherwise unremarkable. CMP was clinically unremarkable. Potassium was minimally low at 3.3. Patient did receive some potassium via her LR IV fluids. hCG quant was 107,077. Departure Communication (Admissions) Time/Spoke to Admitting Phy: 16:00 Dr. Peter Impression Primary Impression: Hyperemesis gravidarum Disposition: 30 STILL A PATIENT Condition: Stable Admissions Decision to Admit Reason: Admit from ER (General) Decision to Admit/Date: Mar 18, 2023 Time/Decision to Admit Time: 16:00 Departure-Patient Inst. Referrals: SELF,CATHERINE NGUYEN (PCP/Family) Primary Care Physician Copy Copies To 1: ANNIE CHACON MD, JOSHUA T MD Mar 18, 2023 14:38
[2023-03-18 14:45] LABS: BASOPHILS % (AUTO) 0 % (0-10); EOSINOPHILS # (AUTO) 0.1 10^3/uL (0.0-0.3); EOSINOPHILS % (AUTO) 1 % (0-10); HEMATOCRIT 45 % (35-52); HEMOGLOBIN 15.8 g/dL (11.5-16.0); LYMPHOCYTES # (AUTO) 3.1 10^3/uL (1.0-4.0); LYMPHOCYTES % (AUTO) 27 % (12-44); MEAN CORPUSCULAR HEMOGLOBIN 31 pg (25-34); MEAN CORPUSCULAR HGB CONC 35 g/dL (32-36); MEAN CORPUSCULAR VOLUME 89 fL (80-99); MONOCYTES % (AUTO) 9 % (0-12); NEUTROPHILS # (AUTO) 7.3 10^3/uL (1.8-7.8); NEUTROPHILS % (AUTO) 63 % (42-75); PLATELET COUNT 224 10^3/uL (130-400); WHITE BLOOD COUNT 11.6 10^3/uL (4.3-11.0)
[2023-03-18 15:00] LABS: POTASSIUM 3.3 MMOL/L (3.6-5.0)
[2023-03-18 15:01] LABS: ALBUMIN 4.4 GM/DL (3.2-4.5); BILIRUBIN,TOTAL 0.9 MG/DL (0.1-1.0); CALCIUM 10.5 MG/DL (8.5-10.1); CREATININE SERUM 0.51 MG/DL (0.60-1.30); MAGNESIUM 1.8 MG/DL (1.6-2.4); TOTAL PROTEIN 6.9 GM/DL (6.4-8.2)
[2023-03-18 15:46] LABS: BILIRUBIN,URINE NEGATIVE (NEGATIVE); CLARITY,URINE SL CLOUDY; COLOR,URINE YELLOW; GLUCOSE, URINE (UA) NEGATIVE (NEGATIVE); KETONES,URINE 2+ (NEGATIVE); LEUKOCYTE ESTERASE ,URINE NEGATIVE (NEGATIVE); NITRITE,URINE NEGATIVE (NEGATIVE); PH,URINE 7.5 (5-9); PROTEIN,URINE 2+ (NEGATIVE)
[2023-03-18 16:01] LABS: AMPHETAMINE SCREEN, URINE NEGATIVE (NEGATIVE); BARBITURATE SCREEN URINE NEGATIVE (NEGATIVE); CANNABINOID SCREEN, URINE POSITIVE (NEGATIVE); COCAINE SCREEN URINE NEGATIVE (NEGATIVE); METHADONE STAT NEGATIVE (NEGATIVE); OPIATE SCREEN URINE NEGATIVE (NEGATIVE); OXYCODONE STAT NEGATIVE (NEGATIVE); PROPOXYPHENE STAT NEGATIVE (NEGATIVE); TRICYCLIC ANTIDEPRESSANTS SCRE NEGATIVE (NEGATIVE)
[2023-03-18 16:02] LABS: AMORPHOUS SEDIMENT,UR MOD AMOR PHOSPHATE /LPF; BACTERIA,URINE FEW /HPF; WBC,URINE 0-2 /HPF
[2023-03-18 18:02] VITALS: BP 122/86
[2023-03-18] MEDS ORDERED: ACETAMINOPHEN 325 MG TABLET PO PRN (18:15)
[2023-03-18] MEDS ORDERED: SCOPOLAMINE PATCH REMOVAL TP SCH (18:59)
[2023-03-18] MEDS ORDERED: SCOPOLAMINE 1.5 MG PATCH TD SCH (19:00)
[2023-03-18] MEDS: LACTATED RINGERS 1,000 ML 1,000 ML IV SCH (19:10)
--- NOTE | 2023-03-18 19:31 | History & Physical ---
HPI History of Present Illness: 33-year-old 3P1 L1 currently at 7 weeks gestation who was seen at [facility] emergency department. She had apparently had dehydration and was given 1 L of fluids there. She does see Dr. Wilkinson as her obstetric provider. She apparently has been seen 5 times at the emergency room over the past few weeks and received IV fluids. She is at home taking Zofran, Phenergan tablets as well as suppositories, scopolamine patch, Doxylamine and vitamin B6. She is with about 10-12 pound weight loss over the past 3 weeks. She is very weak and she states unable to at this time take care of herself at home and is requesting admission. Source: patient Date seen by provider: Mar 18, 2023 Time Seen by Provider: 17:45 Attending Physician Gio Mendiola MD PCP Admitting Physician: Enrique Machado MD Attending Physician: Enrique Machado MD Consult Date of Admission Mar 18, 2023 at 17:30 Home Medications Home Medications Reviewed patient Home Medication Reconciliation performed by pharmacy medication reconciliations geothermal hvac technician and/or nursing. Patients Allergies have been reviewed. Allergies Coded Allergies: amoxicillin (Verified Allergy, Severe, Hives, 12/17/18) adhesive tape (Verified Allergy, Unknown, 03/18/23) Uncoded Allergies: SULFA (Allergy, Severe, Hives, 12/17/18) QYM-Yswsja-Dqcghu Hx Patient Social History Marrital Status: Number of Children: 1 Drug of Choice: Marijuana Smoking Status: Current Everyday Smoker 2nd Hand Smoke Exposure: No Recent Hopitalizations: No Alcohol Use?: Yes (Stopped mid Feb 2023) Substance type: Marijuana (stopped about mid Feb 2023) Immunizations Up To Date Influenza Vaccine Up-to-Date: No; Not Current Review of Systems ([facility]) Constitutional: see HPI Reviewed Test Results Reviewed Test Results Lab Laboratory Tests Test 03/18/23 14:00 03/18/23 15:35 Range/Units White Blood Count 11.6 H 4.3-11.0 10^3/uL Red Blood Count 5.05 3.80-5.11 10^6/uL Hemoglobin 15.8 11.5-16.0 g/dL Hematocrit 45 35-52 % Mean Corpuscular Volume 89 80-99 fL Mean Corpuscular Hemoglobin 31 25-34 pg Mean Corpuscular Hemoglobin Concent 35 32-36 g/dL Red Cell Distribution Width 11.9 10.0-14.5 % Platelet Count 224 130-400 10^3/uL Mean Platelet Volume 12.0 9.0-12.2 fL Immature Granulocyte % (Auto) 0 % Neutrophils (%) (Auto) 63 42-75 % Lymphocytes (%) (Auto) 27 12-44 % Monocytes (%) (Auto) 9 0-12 % Eosinophils (%) (Auto) 1 0-10 % Basophils (%) (Auto) 0 0-10 % Neutrophils # (Auto) 7.3 1.8-7.8 10^3/uL Lymphocytes # (Auto) 3.1 1.0-4.0 10^3/uL Monocytes # (Auto) 1.0 0.0-1.0 10^3/uL Eosinophils # (Auto) 0.1 0.0-0.3 10^3/uL Basophils # (Auto) 0.0 0.0-0.1 10^3/uL Immature Granulocyte # (Auto) 0.0 0.0-0.1 10^3/uL Percent Immature Platelet Fraction 8.3 H 0.0-7.6 % Sodium Level 134 L 135-145 MMOL/L Potassium Level 3.3 L 3.6-5.0 MMOL/L Chloride Level 98 98-107 MMOL/L Carbon Dioxide Level 21 21-32 MMOL/L Anion Gap 15 H 5-14 MMOL/L Blood Urea Nitrogen 9 7-18 MG/DL Creatinine 0.51 L 0.60-1.30 MG/DL Estimat Glomerular Filtration Rate 127 BUN/Creatinine Ratio 18 Glucose Level 110 H 70-105 MG/DL Calcium Level 10.5 H 8.5-10.1 MG/DL Corrected Calcium 10.2 H 8.5-10.1 MG/DL Magnesium Level 1.8 1.6-2.4 MG/DL Total Bilirubin 0.9 0.1-1.0 MG/DL Aspartate Amino Transf (AST/SGOT) 20 5-34 U/L Alanine Aminotransferase (ALT/SGPT) 22 0-55 U/L Alkaline Phosphatase 70 40-136 U/L Total Protein 6.9 6.4-8.2 GM/DL Albumin 4.4 3.2-4.5 GM/DL Human Chorionic Gonadotropin, Quant [id number] H <5 MIU/ML Urine Color YELLOW Urine Clarity SL CLOUDY Urine pH 7.5 5-9 Urine Specific [place] 1.010 L 1.016-1.022 Urine Protein 2+ H NEGATIVE Urine Glucose (UA) NEGATIVE NEGATIVE Urine Ketones 2+ H NEGATIVE Urine Nitrite NEGATIVE NEGATIVE Urine Bilirubin NEGATIVE NEGATIVE Urine Urobilinogen 1.0 < = 1.0 MG/DL Urine Leukocyte Esterase NEGATIVE NEGATIVE Urine RBC (Auto) NEGATIVE NEGATIVE Urine RBC NONE /HPF Urine WBC 0-2 /HPF Urine Squamous Epithelial Cells 2-5 /HPF Urine Crystals PRESENT H /LPF Urine Amorphous Sediment MOD [place] PHOSPHATE H /LPF Urine Bacteria FEW H /HPF Urine Casts NONE /LPF Urine Mucus SMALL H /LPF Urine Culture Indicated NO Urine Opiates Screen NEGATIVE NEGATIVE Urine Oxycodone Screen NEGATIVE NEGATIVE Urine Methadone Screen NEGATIVE NEGATIVE Urine Propoxyphene Screen NEGATIVE NEGATIVE Urine Barbiturates Screen NEGATIVE NEGATIVE Ur Tricyclic Antidepressants Screen NEGATIVE NEGATIVE Urine Phencyclidine Screen NEGATIVE NEGATIVE Urine Amphetamines Screen NEGATIVE NEGATIVE Urine Methamphetamines Screen NEGATIVE NEGATIVE Urine Benzodiazepines Screen NEGATIVE NEGATIVE Urine Cocaine Screen NEGATIVE NEGATIVE Urine Cannabinoids Screen POSITIVE H NEGATIVE Physical Exam-([facility]) Physical Exam Vital Signs VS - Last 72 Hours, by Label 03/18/23 03/18/23 03/18/23 13:53 16:47 18:02 Temp 36.3 36.6 36.5 Pulse 115 90 88 Resp 16 16 18 B/P (MAP) 129/99 (109) 117/75 122/86 Pulse Ox 98 98 100 O2 Delivery Room Air Room Air Room Air Capillary Refill : Less Than 3 Seconds General Appearance: thin (And does appear to be tired) Eyes: Bilateral Eye Normal Inspection HEENT: other (Dry membranes) Respiratory: lungs clear Cardiovascular: regular rate, rhythm Gastrointestinal: non tender, soft Rectal: deferred Extremities: normal range of motion Neurologic/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 Intrauterine at 7 weeks gestation 2. Hyperemesis gravidarum Admission Status: Inpatient Order (span 2 midnights) Reason for Inpatient Admission: Further IV fluids and control of nausea. Will closely monitor her nutrition Assessment & Plan 1. Intrauterine at 7 weeks gestation -patient received ultrasound 1 week ago. -Quantitative hCG was 107,000 at [facility] ED 2. Hyperemesis gravidarum -She is being admitted for lactated Ringer's at 150 cc/h. -Continue with antinausea medications as well. -Advance diet slowly ENRIQUE MACHADO MD Mar 18, 2023 19:30
[2023-03-18] MEDS: ONDANSETRON INJECTION 4 MG/2 ML (SDV) IVP PRN (19:40)
[2023-03-18 19:50] VITALS: BP 116/97
[2023-03-18 19:51] VITALS: BP 116/97
[2023-03-18 23:30] VITALS: BP 120/74
[2023-03-19] MEDS: LACTATED RINGERS 1,000 ML 1,000 ML IV SCH ×3 (01:42→16:15)
[2023-03-19 04:27] VITALS: BP 107/59
[2023-03-19] MEDS: ONDANSETRON INJECTION 4 MG/2 ML (SDV) IVP PRN ×3 (05:00→21:21)
[2023-03-19 06:02] LABS: CALCIUM 9.1 MG/DL (8.5-10.1)
[2023-03-19 06:06] LABS: CREATININE SERUM 0.53 MG/DL (0.60-1.30)
--- NOTE | 2023-03-19 07:46 | Progress Note ---
Subjective Subjective/Events-last exam Maura does feel a little bit better today. When she stood up however very queasy but did not throw up. She has had 4 urine outputs according to her last night. Objective Exam Last Set of Vital Signs Vital Signs Date Time Temp Pulse Resp B/P (MAP) Pulse Ox O2 Delivery O2 Flow Rate FiO2 03/19/23 04:27 37.1 94 20 107/59 (75) 98 Room Air Capillary Refill : Less Than 3 Seconds General: Alert, Oriented X3 Lungs: Clear to Auscultation Heart: Regular Rate (With rate control) Abdomen: Normal Bowel Sounds, Soft Results/Procedures Lab Laboratory Tests 03/18/23 14:00: White Blood Count 11.6H, Red Blood Count 5.05, Hemoglobin 15.8, Hematocrit 45, Mean Corpuscular Volume 89, Mean Corpuscular Hemoglobin 31, Mean Corpuscular Hemoglobin Concent 35, Red Cell Distribution Width 11.9, Platelet Count 224, Mean Platelet Volume 12.0, Immature Granulocyte % (Auto) 0, Neutrophils (%) (Auto) 63, Lymphocytes (%) (Auto) 27, Monocytes (%) (Auto) 9, Eosinophils (%) (Auto) 1, Basophils (%) (Auto) 0, Neutrophils # (Auto) 7.3, Lymphocytes # (Auto) 3.1, Monocytes # (Auto) 1.0, Eosinophils # (Auto) 0.1, Basophils # (Auto) 0.0, Immature Granulocyte # (Auto) 0.0, Percent Immature Platelet Fraction 8.3H, Sodium Level 134L, Potassium Level 3.3L, Chloride Level 98, Carbon Dioxide Level 21, Anion Gap 15H, Blood Urea Nitrogen 9, Creatinine 0.51L, Estimat Glomerular Filtration Rate 127, BUN/Creatinine Ratio 18, Glucose Level 110H, Calcium Level 10.5H, Corrected Calcium 10.2H, Magnesium Level 1.8, Total Bilirubin 0.9, Aspartate Amino Transf (AST/SGOT) 20, Alanine Aminotransferase (ALT/SGPT) 22, Alkaline Phosphatase 70, Total Protein 6.9, Albumin 4.4, Human Chorionic Gonadotropin, Quant [id number] 03/18/23 15:35: Urine Color YELLOW, Urine Clarity SL CLOUDY, Urine pH 7.5, Urine Specific [place] 1.010L, Urine Protein 2+H, Urine Glucose (UA) NEGATIVE, Urine Ketones 2+H, Urine Nitrite NEGATIVE, Urine Bilirubin NEGATIVE, Urine Urobilinogen 1.0, Urine Leukocyte Esterase NEGATIVE, Urine RBC (Auto) NEGATIVE, Urine RBC NONE, Urine WBC 0-2, Urine Squamous Epithelial Cells 2-5, Urine Crystals PRESENTH, Urine Amorphous Sediment MOD [place] PHOSPHATEH, Urine Bacteria FEWH, Urine Casts NONE, Urine Mucus SMALLH, Urine Culture Indicated NO, Urine Opiates Screen NEGATIVE, Urine Oxycodone Screen NEGATIVE, Urine Methadone Screen NEGATIVE, Urine Propoxyphene Screen NEGATIVE, Urine Barbiturates Screen NEGATIVE, Ur Tricyclic Antidepressants Screen NEGATIVE, Urine Phencyclidine Screen NEGATIVE, Urine Amphetamines Screen NEGATIVE, Urine Methamphetamines Screen NEGATIVE, Urine Benzodiazepines Screen NEGATIVE, Urine Cocaine Screen NEGATIVE, Urine Cannabinoids Screen POSITIVEH 03/19/23 05:17: Sodium Level 135, Potassium Level 3.0L, Chloride Level 104, Carbon Dioxide Level 18L, Anion Gap 13, Blood Urea Nitrogen 7, Creatinine 0.53L, Estimat Glomerular Filtration Rate 126, BUN/Creatinine Ratio 13, Glucose Level 82, Calcium Level 9.1 Assessment/Plan Assessment/Plan Admission Status: Inpatient Order (span 2 midnights) Assessment & Plan 1. Intrauterine at 7 weeks gestation -patient received ultrasound 1 week ago. -Quantitative hCG was 107,000 at [facility] ED 2. Hyperemesis gravidarum -She is being admitted for lactated Ringer's at 150 cc/h. -Continue with antinausea medications as well. -Advance diet slowly 03/19 -Will decrease IV fluids to 100 cc/h. -She is taking fluids and is hungry. Will attempt soups this morning. ENRIQUE MACHADO MD Mar 19, 2023 07:46
[2023-03-19 08:20] VITALS: BP 128/86
[2023-03-19] MEDS: PROMETHAZINE INJ 25 MG/ML VIAL IVP PRN ×2 (08:21→23:26)
[2023-03-19 12:32] VITALS: BP 113/77
[2023-03-19] MEDS: diphenhydrAMINE INJ 50 MG/ML VIAL IM PRN ×2 (14:01→21:21)
[2023-03-19 16:15] VITALS: BP 115/65
[2023-03-19 20:00] VITALS: BP 129/77
[2023-03-19 23:28] VITALS: BP 125/72
[2023-03-20] MEDS: LACTATED RINGERS 1,000 ML 1,000 ML IV SCH (02:20)
[2023-03-20 04:00] VITALS: BP 135/80
[2023-03-20 06:20] LABS: BASOPHILS # (AUTO) 0.1 10^3/uL (0.0-0.1); BASOPHILS % (AUTO) 1 % (0-10); EOSINOPHILS # (AUTO) 0.2 10^3/uL (0.0-0.3); EOSINOPHILS % (AUTO) 2 % (0-10); HEMATOCRIT 37 % (35-52); HEMOGLOBIN 12.9 g/dL (11.5-16.0); LYMPHOCYTES # (AUTO) 2.6 10^3/uL (1.0-4.0); LYMPHOCYTES % (AUTO) 30 % (12-44); MEAN CORPUSCULAR HEMOGLOBIN 32 pg (25-34); MEAN CORPUSCULAR HGB CONC 35 g/dL (32-36); MEAN CORPUSCULAR VOLUME 90 fL (80-99); MONOCYTES # (AUTO) 0.9 10^3/uL (0.0-1.0); MONOCYTES % (AUTO) 11 % (0-12); NEUTROPHILS % (AUTO) 57 % (42-75); PLATELET COUNT 157 10^3/uL (130-400); WHITE BLOOD COUNT 8.8 10^3/uL (4.3-11.0)
[2023-03-20 06:39] LABS: POTASSIUM 3.3 MMOL/L (3.6-5.0)
[2023-03-20 06:40] LABS: CALCIUM 9.2 MG/DL (8.5-10.1)
[2023-03-20 06:44] LABS: CREATININE SERUM 0.49 MG/DL (0.60-1.30)
[2023-03-20 08:00] VITALS: BP 127/77
[2023-03-20] MEDS: PROMETHAZINE INJ 25 MG/ML VIAL IVP PRN (08:52)
[2023-03-20] MEDS: POTASSIUM CL 10MEQ/50ML IVPB 50 ML IV SCH ×2 (09:07→10:56)
[2023-03-20] MEDS: ONDANSETRON INJECTION 4 MG/2 ML (SDV) IVP PRN (10:49)
[2023-03-20] MEDS ORDERED: FAMOTIDINE 20 MG TABLET PO SCH (11:00)
[2023-03-20] MEDS ORDERED: PROMETHAZINE 25 MG TABLET PO PRN (11:00)
[2023-03-20] MEDS ORDERED: ONDANSETRON 4 MG ORAL DISSOLVE TABLET PO PRN (11:00)
[2023-03-20] MEDS ORDERED: diphenhydrAMINE 25 MG TABLET PO PRN (11:00)
[2023-03-20] MEDS ORDERED: POTASSIUM CHLORIDE IV SCH (11:00)
[2023-03-20] MEDS ORDERED: D5 LR IV SCH (11:00)
[2023-03-20] MEDS ORDERED: SCOP1PAT10 TD (11:08)
[2023-03-20] MEDS ORDERED: PROM25TA14 PO (11:08)
[2023-03-20] MEDS ORDERED: PYRI25TA4 PO (11:09)
--- NOTE | 2023-03-20 11:58 | Progress Note ---
Subjective Subjective/Events-last exam Afebrile, tolerated some food last night, still just sips of liquid. Vomited around 8 this morning, mostly just feels very exhausted. Has not tried any oral antiemetics yet inpatient. She states the last time she used marijuana was when she found out she was about 3 weeks ago. Denies issues with nausea with marijuana in the past. She does have a history of gastritis, usually takes Nexium but stopped with . No known history of ulcer. Objective Exam Last Set of Vital Signs Vital Signs Date Time Temp Pulse Resp B/P (MAP) Pulse Ox O2 Delivery O2 Flow Rate FiO2 03/20/23 08:00 36.4 87 18 127/77 (94) 98 Room Air Capillary Refill : Less Than 3 Seconds I&O Intake and Output 03/20/23 00:00 Intake Total 2000 ml Balance 2000 ml Intake IV Total 2000 ml General: Alert, No Acute Distress Lungs: Clear to Auscultation, Normal Air Movement Heart: Regular Rate, No Murmurs Abdomen: Normal Bowel Sounds, Soft, Other (mild diffuse ttp) Extremities: No Edema Neuro: Normal Speech Psych/Mental Status: Mental Status NL, Mood NL Results/Procedures Lab Laboratory Tests 03/20/23 05:30: White Blood Count 8.8, Red Blood Count 4.08, Hemoglobin 12.9, Hematocrit 37, Mean Corpuscular Volume 90, Mean Corpuscular Hemoglobin 32, Mean Corpuscular Hemoglobin Concent 35, Red Cell Distribution Width 11.9, Platelet Count 157, Mean Platelet Volume 12.0, Immature Granulocyte % (Auto) 0, Neutrophils (%) (A uto) 57, Lymphocytes (%) (Auto) 30, Monocytes (%) (Auto) 11, Eosinophils (%) (Auto) 2, Basophils (%) (Auto) 1, Neutrophils # (Auto) 5.0, Lymphocytes # (Auto) 2.6, Monocytes # (Auto) 0.9, Eosinophils # (Auto) 0.2, Basophils # (Auto) 0.1, Immature Granulocyte # (Auto) 0.0, Sodium Level 137, Potassium Level 3.3L, Chloride Level 108H, Carbon Dioxide Level 20L, Anion Gap 9, Blood Urea Nitrogen 5L, Creatinine 0.49L, Estimat Glomerular Filtration Rate 128, BUN/Creatinine Ratio 10, Glucose Level 90, Calcium Level 9.2 03/20/23 08:20: Thyroid Stimulating Hormone (TSH) 0.00L Assessment/Plan Assessment/Plan Assessment & Plan 1. at 7w5d per LMP -Quantitative hCG was 107,000 at [place] ED, did have POC US in a prior ER visit and ER physician documented IUP with detectable FHT but not measurable. -Given HCG over 100,000 and severe hyperemesis, formal US would be recommended, not available on the weekend, and she does not have signs of ectopic, will obtain early next week unless clinically indicated sooner. 2. Hyperemesis gravidarum -Will attempt oral meds first today to see if she can tolerate- has Scopalamine patch, prn promethazine which works best per her report and prn ondansetron and diphenhydramine, will add oral options for all. change IVF to D5LR with KCl given persistent hypokalemia. -Add famotidine which she takes at home, consider carafate but liquid is not on formulary and I suspect she won't tolerate the large pills. Discussed possibility of adding back PPI if she has gastritis/esophagitis symptoms that persist. Currently seems more consistent with hyperemesis than reflux disease. -Check TSH -If tolerating liquids and oral meds later today can d/c if she desires 3. History of marijuana use, reports last use 3 weeks ago, discussed avoidance as it can sometimes potentiate nausea and vomiting. TORIE OSCAR MD Mar 20, 2023 11:58
[2023-03-20 12:00] VITALS: BP 110/75
--- NOTE | 2023-03-20 14:47 | Discharge Summary ---
Discharge Summary Hospital Course Hospital Course Date of Admission: Mar 18, 2023 at 17:30 Admission Diagnosis : Hyperemesis gravidarum Family Physician/Provider: Gio Mendiola MD Date of Discharge: 03/20/23 Discharge Diagnosis: [ ] Hyperemesis gravidarum 7 weeks gestation History of gastritis Hospital Course: 1. at 7w5d per LMP -Quantitative hCG was 107,000 at [place] [facility], did have POC US in a prior ER visit and ER physician documented IUP with detectable FHT but not measurable. -Given HCG over 100,000 and severe hyperemesis, formal US would be recommended, not available on the weekend, and she does not have signs of ectopic, will ob tain early next week unless clinically indicated sooner. 2. Hyperemesis gravidarum -Able to tolerate oral antiemetics and liquids on day of d/c- has Scopalamine patch, prn promethazine which works best per her report and prn ondansetron and diphenhydramine -Added famotidine which she takes at home, consider carafate but liquid is not on formulary and I suspect she won't tolerate the large pills. Discussed possibility of adding back PPI if she has gastritis/esophagitis symptoms that persist. 3. History of marijuana use, reports last use 3 weeks ago, discussed avoidance as it can sometimes potentiate nausea and vomiting. Labs and Pending Lab Test: Laboratory Tests 03/20/23 05:30: White Blood Count 8.8, Red Blood Count 4.08, Hemoglobin 12.9, Hematocrit 37, Mean Corpuscular Volume 90, Mean Corpuscular Hemoglobin 32, Mean Corpuscular Hem oglobin Concent 35, Red Cell Distribution Width 11.9, Platelet Count 157, Mean Platelet Volume 12.0, Immature Granulocyte % (Auto) 0, Neutrophils (%) (Auto) 57, Lymphocytes (%) (Auto) 30, Monocytes (%) (Auto) 11, Eosinophils (%) (Auto) 2, Basophils (%) (Auto) 1, Neutrophils # (Auto) 5.0, Lymphocytes # (Auto) 2.6, Monocytes # (Auto) 0.9, Eosinophils # (Auto) 0.2, Basophils # (Auto) 0.1, Immature Granulocyte # (Auto) 0.0, Sodium Level 137, Potassium Level 3.3L, Chloride Level 108H, Carbon Dioxide Level 20L, Anion Gap 9, Blood Urea Nitrogen 5L, Creatinine 0.49L, Estimat Glomerular Filtration Rate 128, BUN/Creatinine Ratio 10, Glucose Level 90, Calcium Level 9.2, Free Thyroxine 2.57H, Total Triiodothyronine [Pending] 03/20/23 08:20: Thyroid Stimulating Hormone (TSH) 0.00L Home Meds Active Promethazine Suppository (Promethazine HCl) 12.5 Mg Supp.rect 12.5 Mg RC Q6H PRN 5 Days Pepcid (Famotidine) 40 Mg Tablet 40 Mg PO DAILY 30 Days Ondansetron Odt (Ondansetron) 4 Mg Tab.rapdis 4 Mg SL Q6H PRN 7 Days Unisom (Doxylamine Succinate) 25 Mg Tablet 25 Mg PO HS 30 Days Tramadol HCl 50 Mg Tablet 50 Mg PO Q6H PRN 5 Days Reported Pyridoxine HCl 25 Mg Tablet 25 Mg PO Q6H Promethazine Tablet (Promethazine HCl) 25 Mg Tablet 25 Mg PO Q6H PRN Transderm-Scop (Scopolamine) 1 Mg/3 Day Patch.td72 1 Patch TD Q72H Assessment/Pt DC Instructions Follow up as scheduled on Wednesday. Discharge Diet: Eat Small Frequent Meals Activity as Tolerated: Yes Discharge Physical Examination Allergies: Coded Allergies: amoxicillin (Verified Allergy, Severe, Hives, 12/17/18) adhesive tape (Verified Allergy, Unknown, 03/18/23) Uncoded Allergies: SULFA (Allergy, Severe, Hives, 12/17/18) General Appearance: No Apparent Distress, Thin Respiratory: Lungs Clear, Normal Breath Sounds Cardiovascular: Regular Rate, Rhythm, No Murmur Gastrointestinal: Normal Bowel Sounds, Non Tender, Soft Skin: Warm/Dry Neurologic/Psychiatric: Alert, Normal Mood/Affect TORIE OSCAR MD Mar 20, 2023 14:47
== END 2023-03-20 14:46 | disposition home or self-care (01) ==
LOC: EDUNIT# 13:53 → ER FS 13:55 → WS 17:30
PROVIDERS: ADMIT Family Medicine; ATTEND Family Medicine
DX: O21.0 Mild hyperemesis gravidarum (principal); O99.320 Drug use complicating pregnancy, unspecified trimester; F12.90 Cannabis use, unspecified, uncomplicated; Z3A.01 Less than 8 weeks gestation of pregnancy; Z87.19 Personal history of other diseases of the digestive system
CPT/HCPCS: 36415; 80048 ×2; 80053; 80306; 81000; 83735; 84439; 84443; 84480; 84702; 85025 ×2; 96361 ×3; 96375 ×2; 96376 ×3; 99284; G0378

== ENCOUNTER 2023-03-22 11:52 | Observation (INO) | payer MEDICAID ==
[~2023-03-22] VITALS: Ht 165.1 cm; Wt 46.5 kg
[~2023-03-22 11:52] MED LIST changes: +PROM25TA14 PO; +PYRI25TA4 PO; +SCOP1PAT10 TD
[2023-03-22 12:00] VITALS: BP 146/86
--- OUTSIDE RECORDS SUMMARY | 2023-03-22 12:11 | XMS REPORT ---
Author Author [facility] ter of [facility] ter of [facility] Address Unknown Phone Unavailable Care Team Providers Care Supervisor Inspection Room Name Role Phone LAURI NICHOLAS Unavailable PROBLEMS Type Condition ICD9-CM Code MUZ42-HV Code Onset Dates Condition Status W/U Status Risk SNOMED Code Notes Problem UTI symptoms R39.9 confirmed 72538573 Problem Tobacco use disorder F17.200 confirmed 786022170 ALLERGIES Allergen (clinical drug ingredient) Drug/Non Drug Allergy documented on EMR Reaction Allergy Type Onset Date Status Tape/Adhesives hives Non Drug Allergy Active amoxicillin Amoxicillin([facility] Code:[id number]) anaphylaxis Drug Allergy Active Latex/Latex Containing Products hives Non Drug Allergy Active Sulfacet-R hives Drug Allergy Active ENCOUNTERS from 1991 to 2022-11-03 Encounter Location Date Provider Diagnosis [facility] [address] [facility] [id number] [address] Nov, LAURI NICHOLAS Sore throat J02.9 ; Screening Z13.9 and Fluid level behind tympanic membrane of both ears H65.93 SOCIAL HISTORY Sex Assigned At : Social History Observation Description Sex Assigned At Female Alcohol Screen (Audit-C) Question Answer Notes Did you have a drink containing alcohol in the p ast year? No Points 0 Interpretation Negative Cessation Question Answer Notes Date Tobacco Cessation Provided: 07/21/2019 PHQ2 Question Answer Notes In the last 2 weeks, how oft en have you had little interest or pleasure in doing things? Not at all In the last 2 weeks, how oft en have you been feeling down, depressed, or hopeless? Not at all Total PHQ2 Score 0 Tobacco use other than smoking: Question Answer Notes Are you an other tobacco user? Yes REASON FOR REFERRAL No Information VITAL SIGNS Height 64 in Nov, Height-cm 162.56 cm Nov, Weight 110 lbs Nov, Weight-kg 49.9 kg Nov, Temperature 98.6 degrees Fahrenheit Nov, Heart Rate 95 bpm Nov, Respiratory Rate 20 bpm Nov, Oximetry 97 % Nov, BMI 18.88 kg/m2 Nov, Blood pressure systolic 112 mmHg Nov, Blood pressure diastolic 70 mmHg Nov, MEDICATIONS Medication SIG (Take, Route, Frequency, Duration) Notes Start Date End Date Status Nitrofurantoin Monohyd Macro 100 MG 1 capsule with food Orally every 12 hrs for 7 days Aug, Active Tylenol 325 MG 1 tablet as needed Orally every 4 hrs Active Multivitamin Active Diflucan 150 MG 1 tablet now, and th en repeat in 72 hours Orally Daily for 3 days Aug, Active REASON FOR VISIT cough, sneezing, sore throat, runny nose, Pt states that she has had chest congestion, drainage, sore throat, and right ear pain since wednesday. Denies fever. Unable to get relief with otc meds.JollyVelásquez MEDICAL (GENERAL) HISTORY Type Description Date Medical History delivered a healthy baby girl Medical History gastritis Surgical History tonsillectomy/adnoids removed Surgical History upper and lower gi Surgical History tubes placed in ears Hospitalization History tonsellectomy/adnoidecto my childhood Hospitalization History labour and delivery 2016 MENTAL STATUS No Information ASSESSMENTS Encounter Date Diagnosis Assessment Notes Treatment Notes Treatment Clinical Notes Nov, Sore throat (ICD-10 - J02.9) Nov, Screening (ICD-10 - Z13.9) Nov, Fluid level behind tympanic membrane of both ears (ICD-10 - H65.93) Strep (-) (-) Prednisone for COSTA rest fluids f/u with PCP if no improvement in 3-4 days Nov, Other Medications as directed, supportive care and monitoring, rest as able, push fluids to maintain hydration. Office visit it not improving. Patient verbalized understanding of above instructions. PLAN OF TREATMENT Medication Medication Name Sig Start Date Stop Date Diflucan 150 MG 1 tablet now, and th en repeat in 72 hours Orally Daily for 3 days Aug, Nitrofurantoin Monohyd Macro 100 MG 1 ca psule with food Orally every 12 hrs for 7 days Aug, Treatment Notes Assessment Notes Clinical Notes Fluid level behind tympanic membrane of both ears Strep (-) (-) Prednisone for COSTA rest fluids f/u with PCP if no improvement in 3-4 days Next Appt Details if not improving with PCP or reg follow up Reason: Insurance Providers Payer Name Payer Address Payer Phone Insured Name Patient Relationship to Insured Coverage Start Date Coverage End Date Subscriber Number Group Number [employer] [address] [facility] [phone] Maura Lacey Self - patient is the insured [id number] [employer] [address] [address] [facility] [id number] Maura Lacey Self - patient is the insured [id number] MEDICATIONS ADMINISTERED Medication Instructions Date of Administration Dosag e TORADOL 60 MG/2ML (KETOROLAC) Jul, 0 1 mL DEXAMETHASONE 4MG/ML (PER 1 ML) Jun, 020 1 mL DEPO MEDROL 80 MG/ML Jun, 80 mg
[2023-03-22] MEDS ORDERED: D5 LR 1,000 ML IV SOLN 1,000 ML IV SCH (12:15)
[2023-03-22] MEDS ORDERED: fentaNYL INJECTION 100 MCG/2 ML VIAL IVP ONE (12:15)
[2023-03-22] MEDS: ONDANSETRON INJECTION 4 MG/2 ML (SDV) IVP PRN ×2 (13:04→18:48)
[2023-03-22] MEDS: PANTOPRAZOLE INJECTION 40 MG VIAL IV SCH ×2 (13:12→21:22)
[2023-03-22 13:23] LABS: HEMATOCRIT 42 % (35-52); HEMOGLOBIN 14.4 g/dL (11.5-16.0); MEAN CORPUSCULAR HEMOGLOBIN 31 pg (25-34); MEAN CORPUSCULAR HGB CONC 35 g/dL (32-36); MEAN CORPUSCULAR VOLUME 89 fL (80-99); MEAN PLATELET VOLUME 11.7 fL (9.0-12.2); PLATELET COUNT 176 10^3/uL (130-400); WHITE BLOOD COUNT 10.8 10^3/uL (4.3-11.0)
[2023-03-22 13:45] LABS: ALBUMIN 3.9 GM/DL (3.2-4.5); BILIRUBIN,TOTAL 0.8 MG/DL (0.1-1.0); CALCIUM 9.5 MG/DL (8.5-10.1); CREATININE SERUM 0.59 MG/DL (0.60-1.30); POTASSIUM 3.3 MMOL/L (3.6-5.0); TOTAL PROTEIN 6.4 GM/DL (6.4-8.2)
--- NOTE | 2023-03-22 14:24 | History & Physical ---
HPI History of Present Illness: 33 yo at 8w0d by LMP, recently discharged 2 days ago after being admitted for hyperemesis gravidarum. She did okay at home for a day and a half, was able to eat and drink without difficulty, but this morning started vomiting again. She notes normal bowel movement yesterday and one mushy BM today. She started seeing blood in her vomit today and has pretty severe epigastric pain accompanying. She has been using doxylamine, B6, promethazine and ondansetron and famotidine at home. She does note a history of gastritis which was previously treated with Nexium prior to , no know history of ulcer. She reports maijuana use prior to being aware of with last use around 3 weeks ago. She denies any use during the time she was at home after her last admit. She has had a POC US in the ER once that showed possible FHT per ER physician documentation, no formal US yet. She denies vaginal bleeding. Per clinic chart, her weight 01/22/23 was 111.2 and today 104.6 lb. Date seen by provider: Mar 22, 2023 Time Seen by Provider: 14:00 Attending Physician Caridad Wilkinson MD PCP Admitting Physician: Torie Torrez MD Attending Physician: Torie Torrez MD Consult Date of Admission Mar 22, 2023 at 12:07 Home Medications Home Medications Reviewed patient Home Medication Reconciliation performed by pharmacy medication reconciliations supply chain technician and/or nursing. Patients Allergies have been reviewed. Allergies Coded Allergies: amoxicillin (Verified Allergy, Severe, Hives, 12/17/18) adhesive tape (Verified Allergy, Unknown, 03/18/23) Uncoded Allergies: SULFA (Allergy, Severe, Hives, 12/17/18) [id number] Hx Patient Social History Drug of Choice: Marijuana Smoking Status: Current Everyday Smoker (vape) 2nd Hand Smoke Exposure: No Recent Hopitalizations: No Alcohol Use?: No (denies in ) Substance type: Marijuana (reports quitting when became ) Past Medical History PMHx: Gastritis SurgHx: Tympanostomy tubes Tonsillectomy/adenoidectomy Oral surgery Family Medical History Significant Family History: No Pertinent Family Hx Review of Systems (CHC) Constitutional: No fever; malaise, weakness Respiratory: No cough Gastrointestinal: abdominal pain, nausea, vomiting Genitourinary: no symptoms reported : Yes Expected Date of Delivery: November 01, 2023 [facility] Physical Exam Vital Signs Capillary Refill : General Appearance: thin, other (very drowsy, recently received fentanyl) Respiratory: lungs clear, normal breath sounds Cardiovascular: regular rate, rhythm, no murmur Gastrointestinal: normal bowel sounds, soft, tenderness (marked epigastric ttp) Extremities: No pedal edema Skin: normal color, warm/dry Assessment/Plan Assessment/Plan Admission Status: Observation (1) 8 weeks gestation of Status: Acute Assessment & Plan: Will obtain formal US given high HCG (over 100,000) and severe hyperemesis without formal US to date. (2) Hematemesis Status: Acute Assessment & Plan: Pantoprazole and famotidine. Spouse concerned about history of gastritis and possible need for EGD, discussed that I suspect hematemesis is due to vomiting, and we are treating as we would for ulcer as well, Surgery consulted, appreciate recommendations. Will follow up on hemoglobin, labs pending. Qualifiers: Qualified Codes: K92.0 - Hematemesis (3) Low TSH level Status: Acute Assessment & Plan: TSH 0.00 at last hospitalization, possibly due to hyperemesis. Free T4 2.54, total T3 pending. Suspect this is related to hyperemesis rather than true hyperthyroidism as she does not have goiter or opathalmopathy, monitor closely. (4) Hyperemesis gravidarum Status: Acute Assessment & Plan: Recurrent admit. D5LR with KCL, folate and thaimine IV repl aced. Check lipase given worsening pain, although may be elevated even in hyperemesis alone. Gall bladder US. Check H pylori stool antigen. Symptomatic treatment with promethazine, ondansetron, diphenhydramine. (5) Hypokalemia due to excessive gastrointestinal loss of potassium Status: Acute Assessment & Plan: Will check Mg and phos as well. TORIE TORREZ MD Mar 22, 2023 14:24
[2023-03-22] MEDS: POTASSIUM CHLORIDE IV SCH (15:14)
[2023-03-22] MEDS: D5 LR IV SCH (15:14)
[2023-03-22] MEDS: PROMETHAZINE INJ 25 MG/ML VIAL IVP PRN (15:31)
--- NOTE | 2023-03-22 15:38 | Consultation - Surgery ---
WILLIS HERNANDEZ 03/22/23 1537: History of Present Illness History of Present Illness Patient Consulted On(abhijit/time) 03/22/23 13:45 Date Seen by Provider: Mar 22, 2023 Time Seen by Provider: 14:00 Reason for Visit: Vomiting and Epigastric pain History of Present Illness Maura Lacey is a 33 year old female 8 week gestation with a history of gastritis who presented with nausea, vomiting and epigastric pain. She says the nausea and vomiting started 3 weeks ago around the time she figured out she was . Patient says she has been to the ER several times for nausea and vomiting and was treated for hyperemesis and sent home. She would do well for around a day or two, but the symptoms would return. Yesterday she was doing "fine" and was able to eat like normal during the day with the last thing she ate being come crackers and peanut butter at around 10 PM, but this morning her nasea and vomiting returned as well as her epigastric pain. She currently describes her pain as sharp, 10/10 pain that radiates to her chest and up her esophagus which started this morning and she also reports vomiting up blood. She also had a loose bowel movement this morning but did not note any bloody or black discoloration. She has a history of gastritis for which she took nexium for but when she found out she was 3 weeks ago, it was switched to Pepcid. She also has a history of smoking marijuana daily until 3 weeks ago. Allergies and Home Medications Allergies Coded Allergies: amoxicillin (Verified Allergy, Severe, Hives, 12/17/18) adhesive tape (Verified Allergy, Unknown, 03/18/23) Uncoded Allergies: SULFA (Allergy, Severe, Hives, 12/17/18) Patient Home Medication List Doxylamine Succinate (Unisom) 25 Mg Tablet, 25 MG PO HS Prescribed by: KENYETTA ALANIS on 03/10/23614 Famotidine (Pepcid) 40 Mg Tablet, 40 MG PO DAILY Prescribed by: KENYETTA ALANIS on 03/10/23 0616 Ondansetron (Ondansetron Odt) 4 Mg Tab.rapdis, 4 MG SL Q6H PRN for NAUSEA/VOMITI NG-2ND LINE Prescribed by: KENYETTA ALANIS on 03/10/23 0615 Promethazine HCl (Promethazine Suppository) 12.5 Mg Supp.rect, 12.5 MG RC Q6H PRN for NAUSEA/VOMITING Prescribed by: ALEX ARRIETA on 03/14/23 2345 Promethazine HCl (Promethazine Tablet) 25 Mg Tablet, 25 MG PO Q6H PRN for nausea, (Reported) Entered as Reported by: TORIE OSCAR on 03/20/23 1108 Pyridoxine HCl (Pyridoxine HCl) 25 Mg Tablet, 25 MG PO Q6H, (Reported) Entered as Reported by: TORIE OSCAR on 03/20/23 1109 Scopolamine (Transderm-Scop) 1 Mg/3 Day Patch.td72, 1 PATCH TD Q72H, (Reported) Entered as Reported by: TORIE OSCAR on 03/20/23 1108 Discontinued Medications Tramadol HCl (Tramadol HCl) 50 Mg Tablet, 50 MG PO Q6H PRN for PAIN Prescribed by: ALEX ARRIETA on 12/17/182055 Past Nfagslc-Zeabzt-Jbsiep Hx Patient Social History Drug of Choice: Marijuana Smoking Status: Current Everyday Smoker (vape) Type Used: Electronic/Vapor 2nd Hand Smoke Exposure: No Recent Hopitalizations: No Alcohol Use?: No Substance type: Marijuana (reports quitting when became but prior, used daily.) Seasonal Allergies Seasonal Allergies: No Surgeries History of Surgeries: Yes (EGD, Tubes in Ears, Colonoscopy, Hernia Repair) Surgeries: Adenoidectomy, Ear Surgery, Tonsillectomy Respiratory History of Respiratory Disorde: No Cardiovascular History of Cardiac Disorders: No Neurological History of Neurological Disord: No Reproductive System : Yes Hx : 3 Hx Para: 1 Genitourinary History of Genitourinary Disor: No Gastrointestinal History of Gastrointestinal Di: Yes (Gastritis) Gastrointestinal Disorders: Gastroesophageal Reflux Musculoskeletal History of Musculoskeletal Dis: No Endocrine History of Endocrine Disorders: No HEENT History of HEENT Disorders: No Cancer History of Cancer: No Psychosocial History of Psychiatric Problem: No Integumentary History of Skin or Integumenta: No Family Medical History Significant Family History: Cancer (mother has breast cancer), Diabetes (on Father's side) Review of Systems-General Constitutional: No chills, No fever EENTM: throat pain; No hearing loss, No blurred vision, No double vision Respiratory: No cough, No short of breath Cardiovascular: chest pain; No palpitations Gastrointestinal: abdominal pain (epigastric ); No constipation, No diarrhea; hematemesis; No melena; nausea, vomiting Physical Exam-General Problems Physical Exam Vital Signs Capillary Refill : General Appearance: moderate distress, thin Neck: supple; No lymphadenopathy (R), No lymphadenopathy (L); tender midline Respiratory: lungs clear, normal breath sounds Cardiovascular: regular rate, rhythm, no edema Peripheral Pulses: 3+ Radial Pulses (R), 3+ Radial Pulses (L) Gastrointestinal: normal bowel sounds, no organomegaly, guarding, tenderness (tenderness in the epigastric regeion to light palpation) Extremities: calf tenderness (on the right) Skin: normal color, warm/dry Data Review Labs Laboratory Tests 03/22/23 13:13: White Blood Count 10.8, Red Blood Count 4.64, Hemoglobin 14.4, Hematocrit 42, Mean Corpuscular Volume 89, Mean Corpuscular Hemoglobin 31, Mean Corpuscular Hemoglobin Concent 35, Red Cell Distribution Width 11.6, Platelet Count 176, Mean Platelet Volume 11.7, Sodium Level 136, Potassium Level 3.3L, Chloride Level 104, Carbon Dioxide Level 20L, Anion Gap 12, Blood Urea Nitrogen 12, Creatinine 0.59L, Estimat Glomerular Filtration Rate 123, BUN/Creatinine Ratio 20, Glucose Level 128H, Calcium Level 9.5, Corrected Calcium 9.6, Total Bilirubin 0.8, Aspartate Amino Transf (AST/SGOT) 25, Alanine Aminotransferase (ALT/SGPT) 32, Alkaline Phosphatase 52, Total Protein 6.4, Albumin 3.9, Lipase 7L Radiology US gallbladder impression: No cholelithiasis or sonographic evidence of acute cholecystitis. Negative liver/gallbladder sonogram. Assessment/Plan Assessment/Plan Assessment/Plan Abdominal Pain Nausea/ Vomiting Hematemesis Calf tenderness Plan: Symptom management Will defer EGD till second trimester. Encourage patient to ambulate as tolerated JO-ANN CINTRON DO 03/22/23 1702: History of Present Illness History of Present Illness Time Seen by Provider: 16:34 History of Present Illness Surgery asked to consult regarding hematemesis. 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 She did okay at home for a day and a half, was able to eat and drink without difficulty, but this morning started vomiting again. She notes normal bowel movement yesterday and one mushy BM today. She started seeing blood in her vomit today and has pretty severe epigastric pain accompanying. She has been using doxylamine, B6, promethazine and ondansetron and famotidine at home. She does note a history of gastritis which was previously treated with Nexium prior to , no know history of ulcer. She reports maijuana use prior to being aware of with last use around 3 weeks ago. She denies any use during the time she was at home after her last admit. She has had a POC US in the ER once that showed possible FHT per ER physician documentation, no formal US yet. She denies vaginal bleeding. When I saw pt she was in her bed eyes closed responding to most questions. Her significant other was in the room and answering the majority of the time for the pt. He stated she had a great day yesterday, no problems and able to eat. N/V and abdominal pain started this am at 630. He states she has lost 11lbs. Hx of gastritis with EGD and colonoscopy in 2012; no ulcers at that time. All of her problems started about 3 weeks ago when she gave up the THC and nicotine use, plus switched to Pepcid from Nexium. She has only seen very small amounts of b lood, "in her spit". Allergies and Home Medications Allergies Coded Allergies: amoxicillin (Verified Allergy, Severe, Hives, 12/17/18) adhesive tape (Verified Allergy, Unknown, 03/18/23) Uncoded Allergies: SULFA (Allergy, Severe, Hives, 12/17/18) Patient Home Medication List Home Medication List Reviewed: Yes Doxylamine Succinate (Unisom) 25 Mg Tablet, 25 MG PO HS Prescribed by: KENYETTA ALANIS on 03/10/23 0615 Famotidine (Pepcid) 40 Mg Tablet, 40 MG PO DAILY Prescribed by: KENYETTA ALANIS on 03/10/23 0616 Ondansetron (Ondansetron Odt) 4 Mg Tab.rapdis, 4 MG SL Q6H PRN for NAUSEA/VOMITING-2ND LINE Prescribed by: KENYETTA ALANIS on 03/10/23 0615 Promethazine HCl (Promethazine Suppository) 12.5 Mg Supp.rect, 12.5 MG RC Q6H PRN for NAUSEA/VOMITING Prescribed by: ALEX ARRIETA on 03/14/23 2345 Promethazine HCl (Promethazine Tablet) 25 Mg Tablet, 25 MG PO Q6H PRN for nausea, (Reported) Entered as Reported by: TORIE OSCAR on 03/20/23 1108 Pyridoxine HCl (Pyridoxine HCl) 25 Mg Tablet, 25 MG PO Q6H, (Reported) Entered as Reported by: TORIE OSCAR on 03/20/23 1109 Scopolamine (Transderm-Scop) 1 Mg/3 Day Patch.td72, 1 PATCH TD Q72H, (Reported) Entered as Reported by: TORIE OSCAR on 03/20/23 1108 Discontinued Medications Tramadol HCl (Tramadol HCl) 50 Mg Tablet, 50 MG PO Q6H PRN for PAIN Prescribed by: ALEX ARRIETA on 12/17/182055 Past Yfnddck-Vpcmeg-Sgsrtq Hx Patient Social History Alcohol Use?: No Substance type: Marijuana (reports quitting when became but prior, used daily.) Surgeries History of Surgeries: Yes Surgeries: Adenoidectomy, Ear Surgery, Tonsillectomy Respiratory History of Respiratory Disorde: No Neurological History of Neurological Disord: No Reproductive System : Yes Genitourinary History of Genitourinary Disor: No Gastrointestinal History of Gastrointestinal Di: Yes Gastrointestinal Disorders: Gastroesophageal Reflux, Gastrointestinal Bleed Musculoskeletal History of Musculoskeletal Dis: No Endocrine History of Endocrine Disorders: No HEENT History of HEENT Disorders: No Cancer History of Cancer: No Psychosocial History of Psychiatric Problem: No Integumentary History of Skin or Integumenta: No Family Medical History Significant Family History: Cancer (mother has breast cancer), Diabetes (on Father's side) Review of Systems-General Constitutional: No chills, No fever; malaise, weakness, weight loss (11lbs) EENTM: throat pain; No hearing loss, No blurred vision, No double vision, No mouth swelling, No epistaxis Respiratory: No cough, No short of breath Cardiovascular: chest pain; No palpitations Gastrointestinal: abdominal pain (epigastric ); No constipation, No diarrhea; hematemesis; No melena; nausea, vomiting Genitourinary: No dysuria, No frequency, No hematuria Musculoskeletal: No joint pain, No joint swelling Skin: No change in color, No change in hair/nails Psychiatric/Neurological: Denies Anxiety, Denies Depressed, Denies Seizure, Denies Tremors Physical Exam-General Problems Physical Exam General Appearance: moderate distress (but laying completely still when I saw her), thin Eyes: Bilateral Eye PERRL, Bilateral Eye EOMI HEENT: pharynx normal; No scleral icterus (R), No scleral icterus (L) Neck: non-tender, supple Respiratory: lungs clear, normal breath sounds, no respiratory distress, no accessory muscle use Cardiovascular: regular rate, rhythm, no murmur Gastrointestinal: soft, no organomegaly, guarding (epigastric to palpation), tenderness (tenderness in the epigastric regeion to light palpation); No hernia Back: no CVA tenderness, no vertebral tenderness Extremities: no pedal edema, calf tenderness (on the right) Neurologic/Psychiatric: alert, oriented x 3 Skin: normal color, warm/dry Lymphatic: no adenopathy (neck, axilla or groin) Data Review Radiology Date of Exam:03/22/23 US GALLBLADDER [id number] PROCEDURE: US Gallbladder. TECHNIQUE: Multiple real-time grayscale images were obtained over the right upper quadrant in various projections. INDICATION: Vomiting. Abdominal pain. patient. COMPARISON: None. FINDINGS: The liver is normal in size, shape and echo texture. There are no focal lesions. Portal vein shows hepatopetal flow. No intra- or extra-hepatic biliary dilatation is present. The common bile duct is not dilated and measures 3 mm. There is no evidence of cholelithiasis, gallbladder wall thickening, or pericholecystic fluid. The visualized portions of the head and proximal body of the pancreas are within normal limits. The distal body and tail of the pancreas are not visualized due to overlying bowel gas. There is no ascites. The right kidney measures approximately 10.7 cm in length and has a normal appearance. The visualized portions of the IVC and aorta are normal. IMPRESSION: No cholelithiasis or sonographic evidence of acute cholecystitis. Negative liver/gallbladder sonogram. Dictated on workstation # [id number] Dict: 03/22/23 1551 Trans: 03/22/23 1553 [id number] Interpreted by: GURINDER HONEYCUTT MD Assessment/Plan Assessment/Plan Assessment/Plan Abdominal Pain Nausea/ Vomiting Hematemesis Calf tenderness I reviewed the US myself and went through old records; as well as, discussed this case with the FP resident. At this time I do not think there is anything s urgical that needs to be done. Would recommend; symptom management, monitor Hg levels, IV fluids and encourage patient to ambulate as tolerated. I would also encourage PO intake. I would defer EGD until second trimester, unless it becomes emergent due to large amounts of bloody emesis or Hg dropping significantly. Supervisory-Addendum Brief Verification & Attestation Participated in pt care: history, MDM, physical Personally performed: exam, history, MDM, supervision of care Care discussed with: Medical Student Procedures: n/a Verification and Attestation of Medical Student E/M Service A medical student performed and documented this service. I then reviewed and verified all information documented by the medical student and made modifications to such information, when appropriate. I personally performed a physical exam, medical decision making and then discussed any differences between the notes and made revisions as necessary to create one note. Jo-Ann Cintron , 03/22/23 , 17:07 WILLIS HERNANDEZ Mar 22, 2023 15:37 JO-ANN CINTRON DO Mar 22, 2023 17:02
[2023-03-22] MEDS ORDERED: FOLIC ACID IV SCH (15:45)
[2023-03-22] MEDS ORDERED: NS IV SCH (15:45)
[2023-03-22] MEDS ORDERED: THIAMINE INJECTION 100 MG in NS (IVPB) 50 ML 50 ML IV SCH ×2 (15:45→16:00)
--- NOTE | 2023-03-22 15:54 | Diagnostic Imaging Report ---
PROCEDURE: US Gallbladder. TECHNIQUE: Multiple real-time grayscale images were obtained over the right upper quadrant in various projections. INDICATION: Vomiting. Abdominal pain. patient. COMPARISON: None. FINDINGS: The liver is normal in size, shape and echo texture. There are no focal lesions. Portal vein shows hepatopetal flow. No intra- or extra-hepatic biliary dilatation is present. The common bile duct is not dilated and measures 3 mm. There is no evidence of cholelithiasis, gallbladder wall thickening, or pericholecystic fluid. The visualized portions of the head and proximal body of the pancreas are within normal limits. The distal body and tail of the pancreas are not visualized due to overlying bowel gas. There is no ascites. The right kidney measures approximately 10.7 cm in length and has a normal appearance. The visualized portions of the IVC and aorta are normal. IMPRESSION: No cholelithiasis or sonographic evidence of acute cholecystitis. Negative liver/gallbladder sonogram. Dictated by: Dictated on workstation # [id number]
[2023-03-22 16:19] LABS: MAGNESIUM 1.5 MG/DL (1.6-2.4); PHOSPHORUS 2.1 MG/DL (2.3-4.7)
[2023-03-22 16:55] VITALS: BP 142/80
--- NOTE | 2023-03-22 16:57 | Diagnostic Imaging Report ---
INDICATION: patient, hyperemesis. TECHNIQUE: OB sonography performed with transabdominal views. FINDINGS: A single live intrauterine fetus is seen measuring 7 weeks 6 days by crown-rump length. Gestational sac is slightly larger measuring 9 weeks 0 days. heart rate is 161 BPM. The gestational sac has normal-appearing shape. There is no evidence of subchorionic bleed. Yolk sac appears unremarkable. The uterus measured 9.6 x 5.7 x 8.0 cm. The ovaries could not be visualized on either side, but there is no free fluid. IMPRESSION: Single live intrauterine fetus measuring 8 weeks 3 days by average measurements, with no detectable abnormality. Suggest follow-up later in as clinically warranted. Dictated by: Dictated on workstation # [id number]
[2023-03-22 19:19] LABS: AMPHETAMINE SCREEN, URINE NEGATIVE (NEGATIVE); BARBITURATE SCREEN URINE NEGATIVE (NEGATIVE); CANNABINOID SCREEN, URINE POSITIVE (NEGATIVE); COCAINE SCREEN URINE NEGATIVE (NEGATIVE); METHADONE STAT NEGATIVE (NEGATIVE); OPIATE SCREEN URINE NEGATIVE (NEGATIVE); OXYCODONE STAT NEGATIVE (NEGATIVE); PROPOXYPHENE STAT NEGATIVE (NEGATIVE); TRICYCLIC ANTIDEPRESSANTS SCRE NEGATIVE (NEGATIVE)
[2023-03-22 19:48] LABS: AMORPHOUS SEDIMENT,UR LARGE AMOR PHOSPHATE /LPF; BACTERIA,URINE FEW /HPF; BILIRUBIN,URINE 1+ (NEGATIVE); CLARITY,URINE CLEAR; COLOR,URINE YELLOW; GLUCOSE, URINE (UA) TRACE (NEGATIVE); KETONES,URINE 4+ (NEGATIVE); LEUKOCYTE ESTERASE ,URINE NEGATIVE (NEGATIVE); NITRITE,URINE NEGATIVE (NEGATIVE); PROTEIN,URINE 3+ (NEGATIVE)
[2023-03-22] MEDS ORDERED: PANTOPRAZOLE INJECTION 40 MG VIAL IV SCH (21:00)
[2023-03-22] MEDS ORDERED: MAGNESIUM 1 GM/100 ML IVPB 100 ML IV ONE (21:00)
[2023-03-22 21:22] VITALS: BP 129/80
[2023-03-22] MEDS: FAMOTIDINE INJ 20MG/2ML VIAL IVP SCH (21:22)
[2023-03-22] MEDS: diphenhydrAMINE INJ 50 MG/ML VIAL IVP PRN (22:10)
[2023-03-23] MEDS ORDERED: D5 LR IV ONE (00:30)
[2023-03-23] MEDS: D5 LR IV SCH ×4 (00:38→18:59)
[2023-03-23] MEDS: POTASSIUM CHLORIDE IV SCH ×4 (00:38→18:59)
[2023-03-23 02:49] VITALS: BP 133/83
[2023-03-23] MEDS: PROMETHAZINE INJ 25 MG/ML VIAL IVP PRN (02:49)
[2023-03-23] MEDS: ONDANSETRON INJECTION 4 MG/2 ML (SDV) IVP PRN ×3 (04:07→19:34)
[2023-03-23] MEDS: diphenhydrAMINE INJ 50 MG/ML VIAL IVP PRN ×2 (05:39→15:12)
[2023-03-23 06:29] LABS: HEMATOCRIT 41 % (35-52); MEAN CORPUSCULAR HEMOGLOBIN 31 pg (25-34); MEAN CORPUSCULAR HGB CONC 35 g/dL (32-36); MEAN CORPUSCULAR VOLUME 90 fL (80-99); MEAN PLATELET VOLUME 11.8 fL (9.0-12.2); PLATELET COUNT 184 10^3/uL (130-400); WHITE BLOOD COUNT 12.4 10^3/uL (4.3-11.0)
[2023-03-23 06:39] LABS: ALBUMIN 3.6 GM/DL (3.2-4.5); POTASSIUM 3.1 MMOL/L (3.6-5.0)
[2023-03-23 06:40] LABS: CALCIUM 9.5 MG/DL (8.5-10.1)
[2023-03-23 06:41] LABS: TOTAL PROTEIN 6.1 GM/DL (6.4-8.2)
[2023-03-23 06:43] LABS: BILIRUBIN,TOTAL 0.6 MG/DL (0.1-1.0)
[2023-03-23 06:44] LABS: PHOSPHORUS 2.8 MG/DL (2.3-4.7)
[2023-03-23 06:45] LABS: CREATININE SERUM 0.57 MG/DL (0.60-1.30)
[2023-03-23 06:48] LABS: MAGNESIUM 1.8 MG/DL (1.6-2.4)
[2023-03-23] MEDS ORDERED: POTASSIUM PHOSPHATE INJ 15 MM in NS (IVPB) 250 ML 250 ML IV ONE (07:00)
--- NOTE | 2023-03-23 07:54 | Progress Note - Surgery ---
WILLIS HERNANDEZ 03/23/23 0754: Subjective Date Seen by a Provider: Mar 23, 2023 Time Seen by a Provider: 07:55 Subjective/Events-last exam Patient had a rough night with feeling sick. Patient reported last episode of vomiting and nausea at around 6 AM this morning. Patient currently rates her epigastric pain at 3/10 and is more of an ache now. She denies any burning in her esophagus currently but says it coleman whenever she throws up. Patient denies seeing any bright red blood in her vomit or spit since yesterday before she was admitted but has had some dark coffee ground like emesis that she estimates to be about half a cups worth since yesterday. Patient has not had a bowel movement since being admitted but also has not had anything solid to eat. She is tolerating her liquid diet well. Review of Systems General: No Chills, No Night Sweats; Fatigue HEENT: No Head Aches, No Visual Changes, No Dysphasia; Sore Throat Pulmonary: No Cough Cardiovascular: No: Chest Pain, Palpitations Gastrointestinal: Nausea (at 6AM this morning ), Vomiting (at 6 AM this morn ing. No bright red blood. ), Abdominal Pain; No: Constipation Genitourinary: No Dysuria Musculoskeletal: No: neck pain, arm pain, back pain, leg pain Focused Exam Respiratory: Lungs Clear, Normal Breath Sounds Cardiovascular: Regular Rate, Rhythm, No Edema, Normal Peripheral Pulses Peripheral Pulses: 3+ Dorsalis Pedis (R), 3+ Left Dors-Pedis (L), 3+ Radial Pulses (R), 3+ Radial Pulses (L) Skin: warm/dry Objective Exam Vital Signs Date Time Temp Pulse Resp B/P (MAP) Pulse Ox O2 Delivery O2 Flow Rate FiO2 03/23/23 02:49 37.0 85 18 133/83 (100) 98 Room Air 03/22/23 21:22 37.5 83 18 129/80 (96) 99 Room Air 03/22/23 16:55 36.7 82 18 142/80 (100) 97 Room Air 03/22/23 13:00 03/22/23 12:00 36.0 66 18 146/86 (106) 99 Room Air I & O 03/23/23 07:00 Intake Total 2961.2 ml Output Total 1000 ml Balance 1961.2 ml Capillary Refill : Less Than 3 Seconds General Appearance: No Apparent Distress, Thin HEENT: No Pharyngeal Erythema Neck: Tender Midline Respiratory: Lungs Clear, Normal Breath Sounds Cardiovascular: Regular Rate, Rhythm, No Edema, Normal Peripheral Pulses Peripheral Pulses: 3+ Dorsalis Pedis (R), 3+ Left Dors-Pedis (L), 3+ Radial Pulses (R), 3+ Radial Pulses (L) Gastrointestinal: normal bowel sounds, guarding (to light palpation of the epigastric region ), tenderness (tenderness in the epigastric region ) Extremity: No Calf Tenderness; No No Pedal Edema Skin: Warm/Dry Results Lab Laboratory Tests 03/22/23 13:13: White Blood Count 10.8, Red Blood Count 4.64, Hemoglobin 14.4, Hematocrit 42, Mean Corpuscular Volume 89, Mean Corpuscular Hemoglobin 31, Mean Corpuscular Hemoglobin Concent 35, Red Cell Distribution Width 11.6, Platelet Count 176, Mean Platelet Volume 11.7, Sodium Level 136, Potassium Level 3.3L, Chloride Level 104, Carbon Dioxide Level 20L, Anion Gap 12, Blood Urea Nitrogen 12, Creatinine 0.59L, Estimat Glomerular Filtration Rate 123, BUN/Creatinine Ratio 20, Glucose Level 128H, Calcium Level 9.5, Corrected Calcium 9.6, Phosphorus Level 2.1L, Magnesium Level 1.5L, Total Bilirubin 0.8, Aspartate Amino Transf ( AST/SGOT) 25, Alanine Aminotransferase (ALT/SGPT) 32, Alkaline Phosphatase 52, Total Protein 6.4, Albumin 3.9, Lipase 7L 03/22/23 18:50: Urine Color YELLOW, Urine Clarity CLEAR, Urine pH 7.0, Urine Specific [place] 1.025H, Urine Protein 3+H, Urine Glucose (UA) TRACEH, Urine Ketones 4+H, Urine Nitrite NEGATIVE, Urine Bilirubin 1+H, Urine Urobilinogen 0.2, Urine Leukocyte Esterase NEGATIVE, Urine RBC (Auto) NEGATIVE, Urine RBC NONE, Urine WBC 2-5, Urine Squamous Epithelial Cells 5-10, Urine Crystals PRESENTH, Urine Amorphous Sediment LARGE [place] PHOSPHATEH, Urine Bacteria FEWH, Urine Casts NONE, Urine Mucus NEGATIVE, Urine Culture Indicated YES, Urine Opiates Screen NEGATIVE, Urine Oxycodone Screen NEGATIVE, Urine Methadone Screen NEGATIVE, Urine Propoxyphene Screen NEGATIVE, Urine Barbiturates Screen NEGATIVE, Ur Tricyclic Antidepressants Screen NEGATIVE, Urine Phencyclidine Screen NEGATIVE, Urine Amphetamines Screen NEGATIVE, Urine Methamphetamines Screen NEGATIVE, Urine Benzodiazepines Screen NEGATIVE, Urine Cocaine Screen NEGATIVE, Urine Cannabinoids Screen POSITIVEH 03/23/23 06:23: White Blood Count 12.4H, Red Blood Count 4.51, Hemoglobin 14.0, Hematocrit 41, Mean Corpuscular Volume 90, Mean Corpuscular Hemoglobin 31, Mean Corpuscular Hemoglobin Concent 35, Red Cell Distribution Width 11.6, Platelet Count 184, Mean Platelet Volume 11.8, Sodium Level 137, Potassium Level 3.1L, Chloride Level 106, Carbon Dioxide Level 24, Anion Gap 7, Blood Urea Nitrogen 6L, Creatinine 0.57L, Estimat Glomerular Filtration Rate 124, BUN/Creatinine Ratio 11, Glucose Level 126H, Calcium Level 9.5, Corrected Calcium 9.8, Phosphorus Level 2.8, Magnesium Level 1.8, Total Bilirubin 0.6, Aspartate Amino Transf (AST/SGOT) 22, Alanine Aminotransferase (ALT/SGPT) 27, Alkaline Phosphatase 49, Total Protein 6.1L, Albumin 3.6 Assessment/Plan Assessment/Plan Assessment/Plan Abdominal Pain Nausea/ Vomiting Hypokalemia Leukocytosis Plan: Patient's CBC remains reassuring, will continue to defer EGD till second trimester. Continue supportive care GIAN MARTINEZ DO 03/23/23 1151: Subjective Time Seen by a Provider: 08:42 Subjective/Events-last exam Pt seen and examined, laying in bed with eyes closed. When asked stated she felt a little better today and denied any recent hematemesis. Review of Systems General: No Chills, No Night Sweats; Fatigue Pulmonary: No Cough Cardiovascular: No: Chest Pain, Palpitations Gastrointestinal: Nausea (at 6AM this morning ), Vomiting (at 6 AM this morning. No bright red blood. ), Abdominal Pain Objective Exam General Appearance: No Apparent Distress, Thin HEENT: Moist Mucous Membranes Respiratory: Lungs Clear, Normal Breath Sounds, No Accessory Muscle Use, No R espiratory Distress Cardiovascular: Regular Rate, Rhythm, No Murmur Gastrointestinal: soft, guarding (to light palpation of the epigastric region ), tenderness (tenderness in the epigastric region ) Extremity: No Calf Tenderness, No Pedal Edema Skin: Warm/Dry Assessment/Plan Assessment/Plan Assessment/Plan Abdominal Pain Nausea/ Vomiting Hypokalemia Leukocytosis Plan: Patient's CBC remains reassuring, will continue to defer EGD till second trimester. Continue supportive care Surgery will sign off and can reconsult if needed. Supervisory-Addendum Brief Verification & Attestation Participated in pt care: history, MDM, physical Personally performed: exam, history, MDM, supervision of care Care discussed with: Medical Student Procedures: n/a Verification and Attestation of Medical Student E/M Service A medical student performed and documented this service. I then reviewed and verified all information documented by the medical student and made modifications to such information, when appropriate. I personally performed a physical exam, medical decision making and then discussed any differences between the notes and made revisions as necessary to create one note. Gian Martinez , 03/23/23 , 11:51 WILLIS HERNANDEZ Mar 23, 2023 07:54 GIAN MARTINEZ DO Mar 23, 2023 11:51
[2023-03-23] MEDS: THIAMINE IV SCH ×2 (09:00→10:05)
[2023-03-23] MEDS: NS IV SCH ×2 (09:00→10:05)
[2023-03-23] MEDS: FOLIC ACID IV SCH ×2 (09:00→10:05)
[2023-03-23] MEDS ORDERED: METOCLOPRAMIDE INJ 10 MG/2 ML IVP PRN (09:15)
--- NOTE | 2023-03-23 09:16 | Progress Note ---
Subjective Subjective/Events-last exam Pt states she feels about the same as yesterday. She thinks that the Zofran and Benadryl work best out of the meds. Her abdomen is very tender today diffusely. Objective Exam Last Set of Vital Signs Vital Signs Date Time Temp Pulse Resp B/P (MAP) Pulse Ox O2 Delivery O2 Flow Rate FiO2 03/23/23 02:49 37.0 85 18 133/83 (100) 98 Room Air Capillary Refill : Less Than 3 Seconds I&O Intake and Output 03/23/23 00:00 Intake Total 1361.2 ml Output Total 450 ml Balance 911.2 ml IV Total 1361.2 ml Output Urine Total 300 ml Emesis 150 ml General: Mild Distress Lungs: Clear to Auscultation Heart: Regular Rate, No Murmurs Abdomen: Normal Bowel Sounds, Soft, Other (diffuse marked ttp) Extremities: No Edema Results/Procedures Lab Laboratory Tests 03/22/23 13:13: White Blood Count 10.8, Red Blood Count 4.64, Hemoglobin 14.4, Hematocrit 42, Mean Corpuscular Volume 89, Mean Corpuscular Hemoglobin 31, Mean Corpuscular Hemoglobin Concent 35, Red Cell Distribution Width 11.6, Platelet Count 176, Mean Platelet Volume 11.7, Sodium Level 136, Potassium Level 3.3L, Chloride Level 104, Carbon Dioxide Level 20L, Anion Gap 12, Blood Urea Nitrogen 12, Creatinine 0.59L, Estimat Glomerular Filtration Rate 123, BUN/Creatinine Ratio 20, Glucose Level 128H, Calcium Level 9.5, Corrected Calcium 9.6, Phosphorus Level 2.1L, Magnesium Level 1.5L, Total Bilirubin 0.8, Aspartate Amino Transf (AST/SGOT) 25, Alanine Aminotransferase (ALT/SGPT) 32, Alkaline Phosphatase 52, Total Protein 6.4, Albumin 3.9, Lipase 7L 03/22/23 18:50: Urine Color YELLOW, Urine Clarity CLEAR, Urine pH 7.0, Urine Specific Sunset 1.025H, Urine Protein 3+H, Urine Glucose (UA) TRACEH, Urine Ketones 4+H, Urine Nitrite NEGATIVE, Urine Bilirubin 1+H, Urine Urobilinogen 0.2, Urine Leukocyte Esterase NEGATIVE, Urine RBC (Auto) NEGATIVE, Urine RBC NONE, Urine WBC 2-5, Urine Squamous Epithelial Cells 5-10, Urine Crystals PRESENTH, Urine Amorphous Sediment LARGE [place] PHOSPHATEH, Urine Bacteria FEWH, Urine Casts NONE, Urine Mucus NEGATIVE, Urine Culture Indicated YES, Urine Opiates Screen NEGATIVE, Urine Oxycodone Screen NEGATIVE, Urine Methadone Screen NEGATIVE, Urine Propoxyphene Screen NEGATIVE, Urine Barbiturates Screen NEGATIVE, Ur Tricyclic Antidepressants Screen NEGATIVE, Urine Phencyclidine Screen NEGATIVE, Urine Amphetamines Screen NEGATIVE, Urine Methamphetamines Screen NEGATIVE, Urine Benzodiazepines Screen NEGATIVE, Urine Cocaine Screen NEGATIVE, Urine Cannabinoids Screen POSITIVEH 03/23/23 06:23: White Blood Count 12.4H, Red Blood Count 4.51, Hemoglobin 14.0, Hematocrit 41, Mean Corpuscular Volume 90, Mean Corpuscular Hemoglobin 31, Mean Corpuscular Hem oglobin Concent 35, Red Cell Distribution Width 11.6, Platelet Count 184, Mean Platelet Volume 11.8, Sodium Level 137, Potassium Level 3.1L, Chloride Level 106, Carbon Dioxide Level 24, Anion Gap 7, Blood Urea Nitrogen 6L, Creatinine 0.57L, Estimat Glomerular Filtration Rate 124, BUN/Creatinine Ratio 11, Glucose Level 126H, Calcium Level 9.5, Corrected Calcium 9.8, Phosphorus Level 2.8, Magnesium Level 1.8, Total Bilirubin 0.6, Aspartate Amino Transf (AST/SGOT) 22, Alanine Aminotransferase (ALT/SGPT) 27, Alkaline Phosphatase 49, Total Protein 6.1L, Albumin 3.6 Radiology Date of Exam:03/22/23 US GALLBLADDER [id number] PROCEDURE: US Gallbladder. TECHNIQUE: Multiple real-time grayscale images were obtained over the right upper quadrant in various projections. INDICATION: Vomiting. Abdominal pain. patient. COMPARISON: None. FINDINGS: The liver is normal in size, shape and echo texture. There are no focal lesions. Portal vein shows hepatopetal flow. No intra- or extra-hepatic biliary dilatation is present. The common bile duct is not dilated and measures 3 mm. There is no evidence of cholelithiasis, gallbladder wall thickening, or pericholecystic fluid. The visualized portions of the head and proximal body of the pancreas are within normal limits. The distal body and tail of the pancreas are not visualized due to overlying bowel gas. There is no ascites. The right kidney measures approximately 10.7 cm in length and has a normal appearance. The visualized portions of the IVC and aorta are normal. IMPRESSION: No cholelithiasis or sonographic evidence of acute cholecystitis. Negative liver/gallbladder sonogram. Dictated on workstation # [id number] Dict: 03/22/23 1551 Trans: 03/22/23 1553 [id number] Interpreted by: GURINDER HONEYCUTT MD Assessment/Plan Assessment/Plan (1) 8 weeks gestation of Status: Acute Assessment & Plan: US with viable IUP at 8w3d by average measurements on 03/22/23. (2) Hematemesis Status: Acute Assessment & Plan: Pantoprazole and famotidine. Spouse concerned about history of gastritis and possible need for EGD, discussed that I suspect hematemesis is due to vomiting, and we are treating as we would for ulcer as well, Surgery consulted, appreciate recommendations. Will follow up on hemoglobin, labs pending. -Agree with surgery recommendations to continue supportive care, hemoglobin remains stable. Continue pantoprazole and famotidine. Qualifiers: Qualified Codes: K92.0 - Hematemesis (3) Low TSH level Status: Acute Assessment & Plan: TSH 0.00 at last hospitalization, possibly due to h yperemesis. Free T4 2.54, total T3 pending. Suspect this is related to hyperemesis rather than true hyperthyroidism as she does not have goiter or opathalmopathy, monitor closely. (4) Hyperemesis gravidarum Status: Acute Assessment & Plan: Recurrent admit. D5LR with KCL, folate and thaimine IV replaced. Check lipase given worsening pain, although may be elevated even in hyperemesis alone. Gall bladder US. Check H pylori stool antigen. Symptomatic treatment with promethazine, ondansetron, diphenhydramine. 03/23- persistent difficulty, gall bladder US unremarkable, lipase normal. Continue folate, thiamine and IVF. H pylori pending, hasn't had bowel movement yet. Will try changing promethazine to metaclopramide. (5) Hypokalemia due to excessive gastrointestinal loss of potassium Status: Acute Assessment & Plan: Mg and phos okay, replace potassium. TORIE OSCAR MD Mar 23, 2023 09:16
[2023-03-23 10:00] VITALS: BP 135/82
[2023-03-23] MEDS: morphine INJ 4 MG/ML 1 ML (VIAL/SYRINGE) IVP PRN (10:04)
[2023-03-23] MEDS: FAMOTIDINE INJ 20MG/2ML VIAL IVP SCH ×2 (10:39→20:57)
[2023-03-23] MEDS: PANTOPRAZOLE INJECTION 40 MG VIAL IV SCH ×2 (10:48→20:57)
[2023-03-23] MEDS: POTASSIUM CL 10MEQ/50ML IVPB 50 ML IV SCH ×4 (11:46→17:12)
[2023-03-23 12:30] VITALS: BP 135/82
[2023-03-23 15:34] VITALS: BP 135/88
[2023-03-23] MEDS ORDERED: POTASSIUM CL 10MEQ/50ML IVPB 50 ML IV ONE (17:10)
[2023-03-23 20:54] VITALS: BP 129/83
[2023-03-24 00:23] VITALS: BP 139/86
[2023-03-24] MEDS: diphenhydrAMINE INJ 50 MG/ML VIAL IVP PRN ×2 (00:23→16:46)
[2023-03-24] MEDS: morphine INJ 4 MG/ML 1 ML (VIAL/SYRINGE) IVP PRN (00:23)
[2023-03-24 03:12] VITALS: BP 105/66
[2023-03-24] MEDS: POTASSIUM CHLORIDE IV SCH (03:12)
[2023-03-24] MEDS: D5 LR IV SCH (03:12)
[2023-03-24 06:02] LABS: HEMATOCRIT 36 % (35-52); HEMOGLOBIN 12.4 g/dL (11.5-16.0); MEAN CORPUSCULAR HEMOGLOBIN 31 pg (25-34); MEAN CORPUSCULAR HGB CONC 34 g/dL (32-36); MEAN CORPUSCULAR VOLUME 90 fL (80-99); MEAN PLATELET VOLUME 11.9 fL (9.0-12.2); PLATELET COUNT 161 10^3/uL (130-400); WHITE BLOOD COUNT 9.4 10^3/uL (4.3-11.0)
[2023-03-24 06:11] LABS: POTASSIUM 3.4 MMOL/L (3.6-5.0)
[2023-03-24 06:12] LABS: CALCIUM 9.5 MG/DL (8.5-10.1)
[2023-03-24 06:16] LABS: CREATININE SERUM 0.5 MG/DL (0.60-1.30)
[2023-03-24] MEDS: THIAMINE IV SCH (08:23)
[2023-03-24] MEDS: PANTOPRAZOLE INJECTION 40 MG VIAL IV SCH ×2 (08:23→21:50)
[2023-03-24] MEDS: FOLIC ACID IV SCH (08:23)
[2023-03-24] MEDS: NS IV SCH (08:23)
[2023-03-24 08:26] VITALS: BP 113/68
[2023-03-24] MEDS: FAMOTIDINE INJ 20MG/2ML VIAL IVP SCH ×2 (08:39→21:50)
--- NOTE | 2023-03-24 08:46 | Progress Note ---
Subjective Subjective/Events-last exam Feeling very tired. States abdomen only hurts when vomiting. Yesterday tolerated some water and sprite, no vomiting during the day, but tried jello yesterday evening and vomited after that. Objective Exam Last Set of Vital Signs Vital Signs Date Time Temp Pulse Resp B/P (MAP) Pulse Ox O2 Delivery O2 Flow Rate FiO2 03/24/23 08:26 37.0 75 16 113/68 (83) 97 Room Air Capillary Refill : Less Than 3 Seconds I&O Intake and Output 03/24/23 00:00 Intake Total 2311 ml Output Total 2150 ml Balance 161 ml Intake Oral 411 ml IV Total 1900 ml Output Urine Total 2050 ml Emesis 100 ml # Voids 4 # Emeses 3 General: Other (drowsy) Lungs: Clear to Auscultation, Normal Air Movement Heart: Regular Rate, No Murmurs Abdomen: Normal Bowel Sounds, Soft, Other (mild diffuse ttp) Extremities: No Edema Psych/Mental Status: Mood NL Results/Procedures Lab Laboratory Tests 03/24/23 05:30: White Blood Count 9.4, Red Blood Count 4.01, Hemoglobin 12.4, Hematocrit 36, Mean Corpuscular Volume 90, Mean Corpuscular Hemoglobin 31, Mean Corpuscular Hemoglobin Concent 34, Red Cell Distribution Width 11.6, Platelet Count 161, Mean Platelet Volume 11.9, Sodium Level 136, Potassium Level 3.4L, Chloride Level 106, Carbon Dioxide Level 23, Anion Gap 7, Blood Urea Nitrogen 5L, Creatinine 0.50L, Estimat Glomerular Filtration Rate 128, BUN/Creatinine Ratio 10, Glucose Level 113H, Calcium Level 9.5 Microbiology 03/22/23 Urine Culture - Final, Complete NO GROWTH Radiology Date of Exam:03/22/23 US GALLBLADDER [id number] PROCEDURE: US Gallbladder. TECHNIQUE: Multiple real-time grayscale images were obtained over the right upper quadrant in various projections. INDICATION: Vomiting. Abdominal pain. patient. COMPARISON: None. FINDINGS: The liver is normal in size, shape and echo texture. There are no focal lesions. Portal vein shows hepatopetal flow. No intra- or extra-hepatic biliary dilatation is present. The common bile duct is not dilated and measures 3 mm. There is no evidence of cholelithiasis, gallbladder wall thickening, or pericholecystic fluid. The visualized portions of the head and proximal body of the pancreas are within normal limits. The distal body and tail of the pancreas are not visualized due to overlying bowel gas. There is no ascites. The right kidney measures approximately 10.7 cm in length and has a normal appearance. The visualized portions of the IVC and aorta are normal. IMPRESSION: No cholelithiasis or sonographic evidence of acute cholecystitis. Negative liver/gallbladder sonogram. Dictated on workstation # [id number] Dict: 03/22/23 1551 Trans: 03/22/23 1553 [id number] Interpreted by: GURINDER HONEYCUTT MD Assessment/Plan Assessment/Plan (1) 8 weeks gestation of Status: Acute Assessment & Plan: US with viable IUP at 8w3d by average measurements on 03/22/23. (2) Hematemesis Status: Acute Assessment & Plan: Pantoprazole and famotidine. Spouse concerned about history of gastritis and possible need for EGD, discussed that I suspect hematemesis is due to vomiting, and we are treating as we would for ulcer as well, Surgery consulted, appreciate recommendations. Will follow up on hemoglobin, labs pe nding. -Agree with surgery recommendations to continue supportive care, hemoglobin remains stable. Continue pantoprazole and famotidine. Qualifiers: Qualified Codes: K92.0 - Hematemesis (3) Low TSH level Status: Acute Assessment & Plan: TSH 0.00 at last hospitalization, possibly due to hyperemesis. Free T4 2.54, total T3 pending. Suspect this is related to hyperemesis rather than true hyperthyroidism as she does not have goiter or opathalmopathy, monitor closely. (4) Hyperemesis gravidarum Status: Acute Assessment & Plan: Recurrent admit. D5LR with KCL, folate and thaimine IV replaced. Check lipase given worsening pain, although may be elevated even in hyperemesis alone. Gall bladder US. Check H pylori stool antigen. Symptomatic treatment with promethazine, ondansetron, diphenhydramine. 03/23- persistent difficulty, gall bladder US unremarkable, lipase normal. Sheyla nue folate, thiamine and IVF. H pylori pending, hasn't had bowel movement yet. Will try changing promethazine to metaclopramide. 03/24- increase metaclopramide to 10 mg per dose. (5) Hypokalemia due to excessive gastrointestinal loss of potassium Status: Acute Assessment & Plan: Mg and phos okay, replace potassium. TORIE OSCAR MD Mar 24, 2023 08:46
[2023-03-24] MEDS ORDERED: POTASSIUM CL 10MEQ/50ML IVPB 50 ML IV ONE (09:00)
[2023-03-24] MEDS ORDERED: METOCLOPRAMIDE INJ 10 MG/2 ML IVP PRN (09:15)
[2023-03-24] MEDS: D5 1/2NS + KCL 20 MEQ/L 1000ML 1,000 ML IV SCH ×2 (10:50→21:49)
[2023-03-24] MEDS: METOCLOPRAMIDE INJ 10 MG/2 ML IVP SCH ×3 (10:50→21:50)
[2023-03-24] MEDS: ONDANSETRON INJECTION 4 MG/2 ML (SDV) IVP PRN (16:46)
[2023-03-24 18:30] VITALS: BP 136/91
[2023-03-25 00:30] VITALS: BP 125/80
[2023-03-25] MEDS: D5 1/2NS + KCL 20 MEQ/L 1000ML 1,000 ML IV SCH ×3 (03:47→20:45)
[2023-03-25] MEDS: METOCLOPRAMIDE INJ 10 MG/2 ML IVP SCH ×4 (03:51→20:46)
[2023-03-25 05:56] LABS: ALBUMIN 3.2 GM/DL (3.2-4.5); POTASSIUM 3.5 MMOL/L (3.6-5.0)
[2023-03-25 05:57] LABS: CALCIUM 9.5 MG/DL (8.5-10.1)
[2023-03-25 05:58] LABS: TOTAL PROTEIN 5.4 GM/DL (6.4-8.2)
[2023-03-25 06:00] LABS: BILIRUBIN,TOTAL 0.9 MG/DL (0.1-1.0)
[2023-03-25 06:02] LABS: CREATININE SERUM 0.5 MG/DL (0.60-1.30); PHOSPHORUS 3.9 MG/DL (2.3-4.7)
[2023-03-25 06:05] LABS: MAGNESIUM 1.5 MG/DL (1.6-2.4)
[2023-03-25] MEDS ORDERED: MAGNESIUM 1 GM/100 ML IVPB 100 ML IV ONE (07:30)
[2023-03-25 07:45] VITALS: BP 110/70
--- NOTE | 2023-03-25 09:11 | Progress Note ---
Subjective Subjective/Events-last exam Patient states she is feeling better today, is hoping to eat some food. Objective Exam Last Set of Vital Signs Vital Signs Date Time Temp Pulse Resp B/P (MAP) Pulse Ox O2 Delivery O2 Flow Rate FiO2 03/25/23 07:45 36.4 62 18 110/70 (83) 96 Room Air Capillary Refill : Less Than 3 Seconds I&O Intake and Output 03/25/23 00:00 Intake Total 5120 ml Output Total 2650 ml Balance 2470 ml Intake Oral 300 ml IV Total 4820 ml Output Urine Total 2450 ml Emesis 200 ml # Voids 2 # Emeses 4 General: Alert, No Acute Distress Lungs: Clear to Auscultation, Normal Air Movement Heart: Regular Rate, No Murmurs Abdomen: Normal Bowel Sounds, Soft Psych/Mental Status: Mood NL Results/Procedures Lab Laboratory Tests 03/25/23 05:25: Sodium Level 133L, Potassium Level 3.5L, Chloride Level 105, Carbon Dioxide Level 20L, Anion Gap 8, Blood Urea Nitrogen 4L, Creatinine 0.50L, Estimat Glomerular Filtration Rate 128, BUN/Creatinine Ratio 8, Glucose Level 110H, Calcium Level 9.5, Corrected Calcium 10.1, Phosphorus Level 3.9, Magnesium Level 1.5L, Total Bilirubin 0.9, Aspartate Amino Transf (AST/SGOT) 16, Alanine Aminotransferase (ALT/SGPT) 20, Alkaline Phosphatase 43, Total Protein 5.4L, Albumin 3.2 Microbiology 03/22/23 Urine Culture - Final, Complete NO GROWTH Radiology Date of Exam:03/22/23 US GALLBLADDER [id number] PROCEDURE: US Gallbladder. TECHNIQUE: Multiple real-time grayscale images were obtained over the right upper quadrant in various projections. INDICATION: Vomiting. Abdominal pain. patient. COMPARISON: None. FINDINGS: The liver is normal in size, shape and echo texture. There are no focal lesions. Portal vein shows hepatopetal flow. No intra- or extra-hepatic biliary dilatation is present. The common bile duct is not dilated and measures 3 mm. There is no evidence of cholelithiasis, gallbladder wall thickening, or pericholecystic fluid. The visualized portions of the head and proximal body of the pancreas are within normal limits. The distal body and tail of the pancreas are not visualized due to overlying bowel gas. There is no ascites. The right kidney measures approximately 10.7 cm in length and has a normal appearance. The visualized portions of the IVC and aorta are normal. IMPRESSION: No cholelithiasis or sonographic evidence of acute cholecystitis. Negative liver/gallbladder sonogram. Dictated on workstation # [id number] Dict: 03/22/23 1551 Trans: 03/22/23 1553 [id number] Interpreted by: GURINDER HONEYCUTT MD Assessment/Plan Assessment/Plan (1) 8 weeks gestation of Status: Acute Assessment & Plan: US with viable IUP at 8w3d by average measurements on 03/22/23. (2) Hematemesis Status: Acute Assessment & Plan: Pantoprazole and famotidine. Spouse concerned about history of gastritis and possible need for EGD, discussed that I suspect hematemesis is due to vomiting, and we are treating as we would for ulcer as well, Surgery consulted, appreciate recommendations. Will follow up on hemoglobin, labs pending. -Agree with surgery recommendations to continue supportive care, hemoglobin remains stable. Continue pantoprazole and famotidine. Qualifiers: Qualified Codes: K92.0 - Hematemesis (3) Low TSH level Status: Acute Assessment & Plan: TSH 0.00 at last hospitalization, possibly due to hyperemesis. Free T4 2.54, total T3 pending. Suspect this is related to hyperemesis rather than true hyperthyroidism as she does not have goiter or opathalmopathy, monitor closely. (4) Hyperemesis gravidarum Status: Acute Assessment & Plan: Recurrent admit. D5LR with KCL, folate and thaimine IV replaced. Check lipase given worsening pain, although may be elevated even in hyperemesis alone. Gall bladder US. Check H pylori stool antigen. Symptomatic treatment with promethazine, ondansetron, diphenhydramine. 03/23- persistent difficulty, gall bladder US unremarkable, lipase normal. Continue folate, thiamine and IVF. H pylori pending, hasn't had bowel movement yet. Will try changing promethazine to metaclopramide. 03/24- increase metaclopramide to 10 mg per dose. 03/25- did better with scheduled metaclopramide, will try oral diphenhydramine and ondansetron today and if tolerating, change to oral metaclopramide tomorrow (5) Hypokalemia due to excessive gastrointestinal loss of potassium Status: Acute Assessment & Plan: Mg and phos okay, replace potassium. TORIE OSCAR MD Mar 25, 2023 09:11
[2023-03-25] MEDS: FAMOTIDINE INJ 20MG/2ML VIAL IVP SCH ×2 (10:00→20:45)
[2023-03-25] MEDS: PANTOPRAZOLE INJECTION 40 MG VIAL IV SCH ×2 (10:00→20:47)
[2023-03-25] MEDS: FOLIC ACID IV SCH (10:01)
[2023-03-25] MEDS: THIAMINE IV SCH (10:01)
[2023-03-25] MEDS: NS IV SCH (10:01)
[2023-03-25] MEDS: diphenhydrAMINE 25 MG TABLET PO PRN ×2 (12:23→18:17)
[2023-03-25] MEDS: ONDANSETRON 4 MG ORAL DISSOLVE TABLET PO PRN ×2 (12:23→18:17)
[2023-03-25 15:55] VITALS: BP 122/78
[2023-03-25 23:49] VITALS: BP 120/72
[2023-03-26] MEDS: METOCLOPRAMIDE INJ 10 MG/2 ML IVP SCH (02:54)
[2023-03-26] MEDS: D5 1/2NS + KCL 20 MEQ/L 1000ML 1,000 ML IV SCH (04:50)
[2023-03-26] MEDS ORDERED: PRENATAL VITAMIN TABLET PO SCH (08:00)
[2023-03-26] MEDS ORDERED: ONDA4TAB11 SL (08:42)
[2023-03-26] MEDS ORDERED: PNV1TABL67 PO (08:42)
[2023-03-26] MEDS ORDERED: DIPH25TA29 PO (08:42)
[2023-03-26] MEDS ORDERED: MTC10T PO (08:42)
[2023-03-26] MEDS ORDERED: PANT40TA52 PO (08:42)
--- NOTE | 2023-03-26 08:43 | Discharge Summary ---
Discharge Summary Hospital Course Problems/Diagnosis: (1) 8 weeks gestation of Status: Acute Assessment & Plan: US with viable IUP at 8w3d by average measurements on 03/22/23. (2) Hematemesis Status: Resolved Resolution Date/Time: 03/24/23 @ 14:43 Assessment & Plan: Pantoprazole and famotidine. Spouse concerned about history of gastritis and possible need for EGD, discussed that I suspect hematemesis is due to vomiting, and we are treating as we would for ulcer as well, Surgery consulted, appreciate recommendations. -Agree with surgery recommendations to continue supportive care, hemoglobin remains stable. Continue pantoprazole and famotidine. Qualifiers: Qualified Codes: K92.0 - Hematemesis (3) Low TSH level Status: Acute Assessment & Plan: TSH 0.00 at last hospitalization, possibly due to hyperemesis. Free T4 2.54, total T3 pending. Suspect this is related to hyperemesis rather than true hyperthyroidism as she does not have goiter or opathalmopathy, monitor closely. (4) Hyperemesis gravidarum Status: Acute Assessment & Plan: Recurrent admit. D5LR with KCL, folate and thaimine IV replaced. Check lipase given worsening pain, although may be elevated even in hyperemesis alone. Gall bladder US. Check H pylori stool antigen. Symptomatic treatment with promethazine, ondansetron, diphenhydramine. 03/23- persistent difficulty, gall bladder US unremarkable, lipase normal. Continue folate, thiamine and IVF. H pylori pending, hasn't had bowel movement yet. Will try changing promethazine to metaclopramide. 03/24- increase metaclopramide to 10 mg per dose. 03/25- did better with scheduled metaclopramide, will try oral diphenhydramine and ondansetron today and if tolerating, change to oral metaclopramide tomorrow 03/26- tolerated bread, potato, chicken yesterday and wanting to go home. Continue oral metoclopramide on d/c, diphenhydramine and ondansetron prn, change metoclopramide to prn in a few days if doing well, discussed not using metoclopromide and promethazine together. (5) Hypokalemia due to excessive gastrointestinal loss of potassium Status: Resolved Resolution Date/Time: 03/26/23 @ 14:44 Assessment & Plan: Mg and phos okay, replace potassium. Hospital Course Date of Admission: Mar 22, 2023 at 12:07 Admission Diagnosis : Family Physician/Provider: Gio Mendiola MD Date of Discharge: 03/26/23 Discharge Diagnosis: See problem list Hospital Course: See problem list Labs and Pending Lab Test: Microbiology 03/22/23 Urine Culture - Final, Complete NO GROWTH Home Meds Active Diphenhydramine HCl 25 Mg Tablet 25 Mg PO Q4H PRN Pnv Plus Multivit Tab (Pnv with Ca,No.72/Iron/FA) 27 Mg Iron-1 Mg Tablet 1 Ea PO DAILY@0700 Metoclopramide HCl 10 Mg Tablet 10 Mg PO Q6H PRN Pantoprazole Sodium 40 Mg Tablet.dr 40 Mg PO DAILY Ondansetron Odt (Ondansetron) 4 Mg Tab.rapdis 4 Mg SL Q6H PRN Promethazine Suppository (Promethazine HCl) 12.5 Mg Supp.rect 12.5 Mg RC Q6H PRN 5 Days Pepcid (Famotidine) 40 Mg Tablet 40 Mg PO DAILY 30 Days Unisom (Doxylamine Succinate) 25 Mg Tablet 25 Mg PO HS 30 Days Reported Pyridoxine HCl 25 Mg Tablet 25 Mg PO Q6H Promethazine Tablet (Promethazine HCl) 25 Mg Tablet 25 Mg PO Q6H PRN Transderm-Scop (Scopolamine) 1 Mg/3 Day Patch.td72 1 Patch TD Q72H Assessment/Pt DC Instructions Follow up with Dr. Wilkinson within a week. Discharge Diet: Eat Small Frequent Meals Activity as Tolerated: Yes Discharge Physical Examination Allergies: Coded Allergies: amoxicillin (Verified Allergy, Severe, Hives, 12/17/18) adhesive tape (Verified Allergy, Unknown, 03/18/23) Uncoded Allergies: SULFA (Allergy, Severe, Hives, 12/17/18) General Appearance: No Apparent Distress, Thin Respiratory: Lungs Clear, Normal Breath Sounds Cardiovascular: Regular Rate, Rhythm, No Murmur Gastrointestinal: Normal Bowel Sounds, Non Tender, Soft Extremity: No Pedal Edema Skin: Normal Color, Warm/Dry Neurologic/Psychiatric: Alert, Normal Mood/Affect Supervisory-Addendum Brief Supervisory Addendum I personally performed the rodríguez portions of the visit, discussed case with resident and concur with resident documentation of history, physical exam, assessment and treatment plan unless otherwise noted. TORIE OSCAR MD Mar 26, 2023 08:43
[2023-03-26 08:45] VITALS: BP 126/75
[2023-03-26] MEDS: ONDANSETRON 4 MG ORAL DISSOLVE TABLET PO PRN (08:53)
[2023-03-26] MEDS: diphenhydrAMINE 25 MG TABLET PO PRN (08:53)
[2023-03-26] MEDS ORDERED: PANTOPRAZOLE 40 MG TABLET PO SCH (09:00)
[2023-03-26] MEDS ORDERED: FAMOTIDINE 20 MG TABLET PO SCH (09:00)
[2023-03-26] MEDS ORDERED: METOCLOPRAMIDE 10 MG TABLET PO SCH (09:00)
[2023-03-26] MEDS: THIAMINE IV SCH (09:06)
[2023-03-26] MEDS: NS IV SCH (09:06)
[2023-03-26] MEDS: FOLIC ACID IV SCH (09:06)
== END 2023-03-26 11:45 | disposition home or self-care (01) ==
LOC: WS 11:52 → UNDOADMOB 12:07 → INTOOBSV 12:07 → UNDODISOB 03-26 11:45
PROVIDERS: ADMIT Family Medicine; ATTEND Family Medicine
DX: O21.1 Hyperemesis gravidarum with metabolic disturbance (principal); O26.891 Other specified pregnancy related conditions, first trimester; O99.611 Diseases of the digestive system complicating pregnancy, first trimester; O99.331 Smoking (tobacco) complicating pregnancy, first trimester; O99.891 Other specified diseases and conditions complicating pregnancy; O99.111 Other diseases of the blood and blood-forming organs and certain disorders involving the immune mechanism complicating pregnancy, first trimester; R94.6 Abnormal results of thyroid function studies; K92.0 Hematemesis; M79.669 Pain in unspecified lower leg; D72.829 Elevated white blood cell count, unspecified; R10.9 Unspecified abdominal pain; Z3A.08 8 weeks gestation of pregnancy; Z3A.00 Weeks of gestation of pregnancy not specified
CPT/HCPCS: 36415; 76705; 76801; 80048; 80053; 80306; 81000; 83690; 83735; 84100; 85027; 87088; 96360; 96361; 96375; 96376; G0378